=== PATIENT | male | born 1940 | race Caucasian/White ===

== ENCOUNTER → 2018-08-04 11:16 | Outpatient (CLI) | payer MEDICARE, SELFPAY ==
--- NOTE | 2018-08-04 11:21 | RAD_ITS ---
STUDY: X-RAY CHEST REASON FOR EXAM: Male, 78 years old. Upper anterior right chest pain. TECHNIQUE: 2 view chest study with PA and lateral projections. COMPARISON: 07/01/2005. FINDINGS: No tubes identified. Lungs appear well ventilated and clear of active focal poorly consolidation air bronchograms, pleural effusion, pneumothorax or abnormally dilated pulmonary vascularity. There is no demonstrated pleural abnormality. Normal size heart. Normal mediastinum and teresa. Normal visualized pulmonary arteries. Normal visualized aortic arch and descending thoracic aorta. Nonacute visualized thoracic spine with moderate to severe mid the ureter changes again noted. Normal visualized ribs, clavicles and right shoulder. 2 metal anchors screws project over the medial left humeral head indicating prior rotator cuff surgery repair. There is no demonstrated abnormality of the visualized soft tissue structures of the upper abdomen. No subdiaphragmatic free air seen grossly. RAD/Chest PA and Lateral IMPRESSION: Nonacute x-ray examination of the chest. Chronic changes as described above. Electronically Signed: Kevin Mcdowell, at 12:04 EDT Tel , Service support ,
[2018-08-04 13:04] LABS: Hematocrit 41.2 % (40-54); Hemoglobin 13.7 g/dl (13.0-16.5); Mean Corp Hgb Conc 33.3 g/gl (32-36); Mean Corpuscular Hgb 27.8 pg (27.0-32.0); Mean Corpuscular Volume 83.6 fL (80-94); Mean Platelet Vol. 10.1 fl (6.2-12.0); Platelet Count 206 K/mm3 (150-450); RBC Distribution Width CV 16.5 % (11.6-14.6); RBC Distribution Width SD 50.1 fl (35.1-43.9); Red Blood Count 4.93 M/mm3 (4.6-6.2); Scan Indicated on CBC? Y/N NO; White Blood Count 6.5 K/mm3 (4.4-11.0)
[2018-08-04 13:06] LABS: Erythrocyte Sedimentation Rate 20 mm/hr (0-20)
[2018-08-04 13:16] LABS: ALB/GLOB Ratio 0.9 RATIO (0.9-2.4); AST(SGOT) 25 U/L (15-37); Alanine Aminotransfer ALT/SGPT 38 U/L (16-61); Albumin, Serum 3.5 g/dL (3.2-5.0); Alkaline Phosphatase 90 U/L (45-117); Anion Gap 6 (5-15); BUN 18 mg/dL (7-18); BUN/Creat Ratio 18.6 RATIO (10-20); Calcium,Total 8.3 mg/dL (8.5-10.1); Chloride 104 mmol/L (98-107); Creatinine, Serum 0.97 mg/dL (0.70-1.30); EST Glomerular Filtration Rate 80 mL/min (>60); Est Glom Filt Rate - Afr Amer 96 mL/min (>60); Globulin 3.9 g/dL (2.2-4.2); Glucose 95 mg/dL (74-106); Potassium 4.3 mmol/L (3.5-5.1); Protein, Total 7.4 g/dL (6.4-8.2); Sodium Level 138 mmol/L (136-145)
== END ==
PROVIDERS: Family Provider Internal Medicine; PCP Internal Medicine; Referring Provider Internal Medicine; Visit Provider Internal Medicine
DX: R07.89 Other chest pain (principal)
CPT/HCPCS: 71046; 80053; 84484; 85027; 85379; 85652

== ENCOUNTER → 2018-08-04 14:03 | Outpatient (CLI) | payer MEDICARE, SELFPAY ==
--- NOTE | 2018-08-04 14:07 | CT_ITS ---
STUDY: CTA CHEST REASON FOR EXAM: Male, 78 years old. Elevated d-dimer right-sided chest pain and history of stents RADIATION DOSAGE (If Supplied By Facility): CTDIvol = ( 11.29 ) mGy, DLP = ( 606.04 ) mGycm TECHNIQUE: The examination was performed with the intravenous administration of 100 ml of Isovue 370 contrast material. Post-processing of the angiographic images was performed, with multiplanar reformation and 3D reconstruction. Individualized dose optimization techniques were used for this CT. COMPARISON: April 17, 2015 CT anterior chest FINDINGS: Normal enhancement of the main pulmonary artery and right and left pulmonary arteries. Normal enhancement of the bilateral peripheral pulmonary arteries. There is no demonstrated pulmonary embolism. Cord at the time of this study has minimal contrast enhancement. There is calcification of the descending thoracic aorta. There is mild cardiac enlargement. The visualized coronary calcifications. Normal mediastinum. Normal hilar regions. Normal visualized trachea and bronchi. There is a pattern of subtle groundglass opacity with areas of hyperlucency and mixed greater density lungs suggestive of air trapping chronic obstructive pulmonary disease. Normal pleura. There is a small focus of scarlike density within the left posterior spinous superficial soft tissues approximately at the level of T6. There are degenerative changes of thoracic spine. The stomach is distended. There are gallstones in the gallbladder. There is a small hiatal hernia. CT/CTA Chest W/WO Contrast IMPRESSION: No visualized pulmonary embolism. There is limited contrast enhancement of the aorta at the time of this study. No visualized aneurysmal dilatation. Subtle pattern of groundglass opacity suspicious for air trapping chronic obstructive pulmonary disease. Mild cardiomegaly coronary artery disease Minimal heterogeneity Cholelithiasis. Electronically Signed: Dee Dee Kent MD at 15:42 EDT Tel , Service support ,
== END ==
PROVIDERS: Family Provider Internal Medicine; PCP Internal Medicine; Referring Provider Internal Medicine; Visit Provider Internal Medicine
DX: R07.89 Other chest pain (principal)
CPT/HCPCS: 71046; 71275; 80053; 84484; 85027; 85379; 85652; Q9967

== ENCOUNTER → 2018-09-04 06:52 | Outpatient (CLI) | payer MEDICARE, SELFPAY ==
--- NOTE | 2018-09-04 06:55 | CDU_ITS ---
Reason For Study: Carotid stenosis Rt. Velocities/BP Lt. Velocities/BP Prox CCA 108.0/11.7 cm/sec. Prox CCA 93.2/17.0 cm/sec. Mid CCA 115.0/14.7 cm/sec. Mid CCA 108.0/21.1 cm/sec. Dist CCA 105.0/17.0 cm/sec. Dist CCA 93.8/23.5 cm/sec. Prox ICA 86.8/25.2 cm/sec. Prox ICA 64.4/17.5 cm/sec. Mid ICA 64.3/17.8 cm/sec. Mid ICA 80.9/22.9 cm/sec. Dist ICA 68.9/20.4 cm/sec. Dist ICA 80.3/25.8 cm/sec. Rt. ICA/CCA = .75. Lt. ICA/CCA = .75. Prox ECA 113.0/15.2 cm/sec. Prox ECA 98.5/16.4 cm/sec. Rt. Vert. 63.3/16.4 cm/sec. Lt. Vert. 51.6/16.4 cm/sec. Right Extracranial There is intimal thickening but no significant atherosclerotic plaque noted in the right common carotid artery. There is no significant atherosclerotic plaque noted in the right internal carotid artery. There is no significant atherosclerotic plaque noted in the right external carotid artery. Antegrade flow is noted in the right vertebral artery. There is heterogeneous, irregular atherosclerotic plaque noted in the right bulb. Left Extracranial There is intimal thickening but no significant atherosclerotic plaque noted in the left common carotid artery. There is intimal thickening but no significant atherosclerotic plaque noted in the left internal carotid artery. There is no significant atherosclerotic plaque noted in the left external carotid artery. Antegrade flow is noted in the left vertebral artery. Procedure Carotid Duplex [id number]. Exam performed in department. Interpretation Summary Mild (<50%) stenosis right extracranial internal carotid. Mild (<50%) stenosis left extracranial internal carotid. Flow within the vertebral arteries is antegrade bilaterally. Ordering Physician: Cindy Leslie Referring Physician: Cindy Leslie Performed By: Gabriela Rosen RVT
--- NOTE | 2018-09-04 14:36 | STRESSREP_ITS ---
Stress Test Report Exercise myocardial perfusion stress test. 78-year-old man with a history of chest pain. Medications metoprolol lisinopril doxazosin. Stress protocol: Resting EKG demonstrates sinus bradycardia with a rate of 56 bpm normal intervals and noted resting blood pressure 120/68 mmHg. The patient exercised according to regular Laurent protocol for a total duration of 7 minutes completing 1 minute into stage III of the Laurent protocol. The maximum heart rate attained was 148 bpm which was 104% of maximum predicted heart rate the maximum workload was 8.5 metabolic equivalents. At rest there were no ST or T wave changes noted suggest ischemia peak exercise upsloping ST changes were noted with no meet the criteria for ischemia. No clinical angina was noted the test was terminated due to leg fatigue. Myocardial perfusion protocol. 14.1 mCi of technetium 99m sestamibi was injected at rest. The patient exercised according to regular Laurent protocol for total duration of 7 minutes. At peak exercise 43.9 mCi of technetium 99m sestamibi was injected stress images were obtained stress and rest images were reconstructed and compared in the short axis vertical long and horizontal long axis. Gated images were also obtained per Perfusion SPECT analysis: Review of the stress images demonstrate normal uptake of tracer noted in all are as of the myocardium. The resting images similarly demonstrate normal uptake of tracer noted in all areas of the myocardium. No areas of reversibility are noted suggest ischemia. Gated SPECT analysis: The gated ejection fraction is noted to be 67%. Conclusion: Normal exercise myocardial perfusion stress test at a moderate workload. Good functional capacity. Preserved ejection fraction.
== END ==
PROVIDERS: Family Provider Internal Medicine; PCP Internal Medicine; Referring Provider Internal Medicine; Visit Provider Internal Medicine
DX: I65.23 Occlusion and stenosis of bilateral carotid arteries (principal); R07.89 Other chest pain
CPT/HCPCS: 78452; 93017; 93880; A9500; A4216

== ENCOUNTER 2019-10-20 22:50 | Emergency (ER) | payer MEDICARE, SELFPAY ==
[2019-10-20 22:52] VITALS: BP 147/72; PULSE 67; RESP 20; TEMP 36.3; O2SAT 98; BMI 28.1
--- NOTE | 2019-10-20 22:57 | EKG12_ITS ---
Test Reason : CP Blood Pressure : / mmHG Vent. Rate : 063 BPM Atrial Rate : 267 BPM P-R Int : 000 ms QRS Dur : 078 ms QT Int : 422 ms P-R-T Axes : 000 014 060 degrees QTc Int : 431 ms Normal sinus rhythm Abnormal ECG Confirmed by JUAN FRANCISCO PERALES, RICKIE ([id number]), book editor PEDRO PABLO CORREA ([id number]) on 10/23/2019 10:03:51 AM Referred By: DERIK Confirmed By:RICKIE CHICAS MD
--- NOTE | 2019-10-20 23:00 | RAD_ITS ---
HISTORY: CHEST PAIN STARTING A COUPLE HOURS AGO EXAMINATION/TECHNIQUE: XR Chest 1 View: Portable COMPARISON: 08/04/2018 FINDINGS: Cardiac telemetry leads in place. Shallow inspiration. No focal infiltrate. No vascular congestion or pleural effusion. No pneumothorax. Left shoulder surgical suture anchors. RAD/Chest 1 View (Portable) IMPRESSION: No acute cardiopulmonary disease. No significant interval change. at 0137 Reported and signed by: Micheal Quiros MD Electronically Signed: Micheal Quiros, at 1:36 EST Tel , Service support ,
[2019-10-20 23:04] VITALS: BP 162/66; PULSE 69; RESP 14
[2019-10-20 23:16] LABS: Absolute Lymphocyte Count 1.31 X10^3/uL (0.83-4.51); Absolute Neutrophil Count 6.2 X10^3/uL (2.0-7.7); Basophil# 0.02 X10^3/uL; Basophil% 0.2 % (0-1); Eosinophil# 0.18 X10^3/uL; Eosinophils% 2.2 % (0-5); Hematocrit 37.1 % (40-54); Lymphocyte # 1.31 X10^3/ul (4.0); Mean Corp Hgb Conc 32.3 g/dL (32-36); Mean Corpuscular Volume 86.7 fL (80-94); Mean Platelet Vol. 9.7 fl (6.2-12.0); Monocyte# 0.45 X10^3/uL; Monocyte% 5.5 % (0-10); NRBC Flagged by Analyzer 0 % (0-5); Neutrophil # 6.22 X10^3/uL (2.7-7.7); Neutrophil % 75.9 % (47-70); Platelet Count 172 K/mm3 (150-450); RBC Distribution Width CV 15.8 % (11.6-14.6); RBC Distribution Width SD 49.4 fl (35.1-43.9); Red Blood Count 4.28 M/mm3 (4.6-6.2); White Blood Count 8.2 K/mm3 (4.4-11.0)
[2019-10-20 23:41] LABS: Anion Gap 4 (5-15); BUN 25 mg/dL (7-18); BUN/Creat Ratio 21.2 RATIO (10-20); Calcium,Total 8.7 mg/dL (8.5-10.1); Chloride 106 mmol/L (98-107); Creatinine, Serum 1.18 mg/dL (0.70-1.30); EST Glomerular Filtration Rate 63 mL/min (>60); Est Glom Filt Rate - Afr Amer 77 mL/min (>60); Estimated Creatinine Clearance 49.11 ml/min; Glucose 166 mg/dL (74-106); Potassium 3.5 mmol/L (3.5-5.1); Sodium Level 143 mmol/L (136-145)
--- NOTE | 2019-10-20 23:47 | US_ITS ---
HISTORY: RUQ PAIN X 1 DAY EXAMINATION: US gallbladder and right upper quadrant abdomen TECHNIQUE: Garzon scale and color doppler imaging was performed of the gallbladder and right upper quadrant abdomen. COMPARISON: CTA chest 08/04/2018 FINDINGS: The gallbladder is adequately distended and shows multiple small dependent stones which shadow. Additional nonshadowing gallbladder sludge. No suspicious gallbladder wall thickening or pericholecystic edema. By history, positive sonographic Watts's sign. The common bile duct measures 0.3 cm in diameter which is normal. The liver appears enlarged measuring nearly 20 cm in length. No focal hepatic lesion identified. No free fluid. The pancreas is poor visualized secondary to acoustical shadowing from overlying bowel. The right kidney is visualized and appears normal measuring 11 cm in length and without hydronephrosis. US/Abdomen Limited IMPRESSION: 1. Cholelithiasis. No biliary dilatation. 2. Hepatomegaly. No free fluid. Comment: By history, positive sonographic Watts's sign. Please correlate clinically. at 0306 Reported and signed by: Micheal Quiros MD Electronically Signed: Micheal Quiros, at 3:04 EST Tel , Service support ,
--- NOTE | 2019-10-20 23:49 | ED.VIS.GEN ---
History of Present Illness Chief Complaint: Chest Pain Narrative: This patient is a 79-year-old male who presents with epigastric pain. This began about 3 hours ago. He had eaten a small piece of ham but not much else since about noon. No history of prior similar symptoms. He describes it as pressure-like. It is nonradiating. It is severe. He states he feels a little short of breath. No fever cough congestion rhinorrhea. No dizziness. No nausea. No vomiting or diarrhea. No abdominal surgeries. He does have a history of hypertension and coronary disease. No abdominal surgeries. Past Medical History - Allergies and Home Meds Allergies/Adverse Reactions: Allergies No Known Allergies Allergy (Verified 10/20/19 22:52) Primary Care Physician: Cindy Leslie MD [Primary Care Provider] - Prior records reviewed: Yes Past Medical History: - - Hypertension, coronary artery disease Smoking Status: Never smoker Review of Systems All systems negative except as indicated General: Denies: Fever Cardiovascular: Denies: Chest pain Respiratory: Reports: Dyspnea. Denies: Cough Gastrointestinal: Reports: Abdominal pain. Denies: Nausea, Vomiting, Diarrhea Musculoskeletal: Denies: Myalgias, Arthralgias Skin: Denies: Rash Neurological: Denies: Headache Physical Exam Vital Signs/Narrative: Vital Signs Temp Pulse Resp BP Pulse Ox 10/20/19 23:04 69 14 162/66 H 10/20/19 22:52 97.3 F L 67 20 H 147/72 H 98 Inital Vital Signs reviewed: Yes General: Well nourished, Well developed Head: Normocephalic Eyes: EOMI ENT: Moist mucous membranes Neck: Supple Cardiovascular: Regular rate, Regular rhythm Respiratory: No distress, CTA bilaterally Abdomen: Soft, - - Epigastric and right upper quadrant pain without guarding without rebound, no Watts's sign Extremities: Nontender Skin: Diaphoresis Neurological: Alert Psychological: Normal affect Diagnostic/Tx/Re-eval Impressions Chest X-Ray 10/20/19 23:00 IMPRESSION: No acute cardiopulmonary disease. No significant interval change. at 0137 Reported and signed by: Micheal Quiros MD Electronically Signed: Micheal Quiros, at 1:36 EST Tel , Service support , Abdomen Ultrasound 10/20/19 23:47 IMPRESSION: 1. Cholelithiasis. No biliary dilatation. 2. Hepatomegaly. No free fluid. Comment: By history, positive sonographic Watts's sign. Please correlate clinically. at 0306 Reported and signed by: Micheal Quiros MD Electronically Signed: Micheal Quiros, at 3:04 EST Tel , Service support , 10/20/19 23:00 Chest 1 View (Portable) [RAD] Stat 10/20/19 23:47 Abdomen Limited [US] Stat Laboratory Results 10/20/19 10/20/19 10/20/19 23:03 23:03 23:03 WBC 8.2 RBC 4.28 L Hgb 12.0 L Hct 37.1 L MCV 86.7 MCH 28.0 MCHC 32.3 RDW Std Deviation 49.4 H RDW Coeff of Bailey 15.8 H Plt Count 172 MPV 9.7 Immature Gran % (Auto) 0.200 Neut % (Auto) 75.9 H Lymph % (Auto) 16.0 L Hernando % (Auto) 5.5 Eos % (Auto) 2.2 Baso % (Auto) 0.2 Absolute Neuts (auto) 6.2 Absolute Lymphs (auto) 1.31 Nucleated RBC % 0 Sodium 143 Potassium 3.5 Chloride 106 Carbon Dioxide 33.0 H Anion Gap 4 L BUN 25 H Creatinine 1.18 Estim Creat Clear Calc 49.11 Est GFR (MDRD) Af Amer 77 Est GFR (MDRD) Non-Af 63 BUN/Creatinine Ratio 21.2 H Glucose 166 H Calcium 8.7 Total Bilirubin 0.50 Direct Bilirubin 0.18 AST 20 ALT 28 Alkaline Phosphatase 83 Troponin I < 0.015 Total Protein 7.6 Albumin 3.7 Globulin 3.9 Lipase 169 - Medical Decision Making Patient's initial presentation was most concerning for biliary colic or cholecystitis. EKG was obtained which shows a regular narrow complex rhythm at a rate of 63. Chest x-ray unremarkable. Laboratory studies including CMP and lipase unremarkable. Right upper quadrant ultrasound shows cholelithiasis without any pericholecystic fluid or wall thickening. There was however positive sonographic Watts sign. Patient was given morphine and Zofran with only minimal improvement of symptoms. He was given Toradol with relief but not complete resolution of his pain. On reevaluation he is resting comfortably but still rates his pain is 2-1/2 out of 10. I did speak to general surgery on-call. We do not feel the patient has an indication for emergent surgery and do feel he can follow-up as an outpatient. On my reevaluation to discuss this plan patient is actually currently now pain-free. Therefore I do feel he is appropriate for outpatient discharge with follow-up with surgery. He was advised on supportive care and diet. I did write a prescription for Cambridge. He was advised on signs and symptoms which should prompt return here to the emergency department for reevaluation such as fevers or vomiting. Patient agreeable to this plan was discharged home. ED Disposition - Plan for ED Patient: Disposition: Home or Assisted Living Diagnosis: Biliary colic Instructions: BILIARY COLIC with Gallstone (Confirmed) Prescriptions: Hydrocodone Bitart/Apap 5-325 [Cambridge 5MG-325MG] 1 tab PO Q6H PRN PRN 3 Days #10 tab PRN Reason: Pain Prescription Printed Referrals: Cindy Leslie MD [Primary Care Provider] - William Myles MD [STAFF PHYSICIAN] -
[2019-10-20] MEDS: 0.9% Normal Saline 1,000 ML 1000 ML IV (23:57)
[2019-10-20] MEDS: Ondansetron 4 MG/2 ML Vial IV (23:57)
[2019-10-20] MEDS: Morphine 4 MG/ML Syringe IV (23:57)
[2019-10-21 00:08] VITALS: BP 157/62; PULSE 52; RESP 15; O2SAT 99
[2019-10-21 00:24] LABS: AST(SGOT) 20 U/L (15-37); Alanine Aminotransfer ALT/SGPT 28 U/L (16-61); Albumin, Serum 3.7 g/dL (3.2-5.0); Alkaline Phosphatase 83 U/L (45-117); Bilirubin, Direct 0.18 mg/dL (0.00-0.30); Globulin 3.9 g/dL (2.2-4.2); Lipase 169 U/L (73-393); Protein, Total 7.6 g/dL (6.4-8.2)
[2019-10-21 02:58] VITALS: BP 130/71; PULSE 56; RESP 16; O2SAT 94
[2019-10-21 03:07] VITALS: BP 125/56; PULSE 51; RESP 16; O2SAT 96
[2019-10-21] MEDS: Ketorolac 15 MG/ML Vial IV (03:35)
[2019-10-21 04:15] VITALS: BP 123/53; PULSE 58; RESP 15; O2SAT 96
[2019-10-21 04:17] VITALS: BP 123/53; PULSE 58; RESP 15; O2SAT 96
== END 2019-10-21 04:27 | disposition home or self-care (01) ==
PROVIDERS: Emergency Provider Emergency Medicine; Family Provider Internal Medicine; PCP Internal Medicine
DX: K80.70 Calculus of gallbladder and bile duct without cholecystitis without obstruction (principal); I25.10 Atherosclerotic heart disease of native coronary artery without angina pectoris; I10 Essential (primary) hypertension; Z79.82 Long term (current) use of aspirin; Z79.899 Other long term (current) drug therapy
CPT/HCPCS: 71045; 76705; 80048; 80076; 83690; 84484; 85025; 93005; 96361; 96374; 96375; 99284; J7030; A4216; J2405

== ENCOUNTER 2019-10-23 15:13 | Observation (INO) | payer MEDICARE, SELFPAY ==
[2019-10-22 10:10] VITALS: BMI 28.1
--- NOTE | 2019-10-22 10:26 | HP.PCM_ITS ---
Problem List (1) Cholelithiasis Status: Acute Qualifiers: Cholelithiasis location: gallbladder Cholecystitis presence: without cholecystitis Biliary obstruction: without biliary obstruction Qualified Code(s): K80.20 - Calculus of gallbladder without cholecystitis without obstruction History and Physical Date of Admission: 10/22/19 Intake Vital Signs 10/22/19 BMI 28.1 10/22/19 Height 5 ft 8 in 10/22/19 Weight: 185 lb 7 oz 10/22/19 BMI 28.2 10/22/19 BP 123/67 H 10/22/19 Blood Pressure Location Rt brachial 10/22/19 Position Sitting 10/22/19 Respiration 20 H 10/22/19 Pulse 79 10/22/19 Pulse Oximetry (%) 93 Intake Visit Reasons: Gallbladder problems Chief Complaint: abn RUQ US Flash Ranging 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 Required: No Is patient in pain?: No Allergies No Known Allergies Allergy (Verified 10/22/19 10:08) Medications Aspirin [Aspirin, Baby] 81 mg PO DAILY@0800 04/17/15 [History Confirmed 10/22/19] Hydrocodone Bitart/Apap 5-325 [Descanso 5MG-325MG] 1 tab PO Q6H PRN PRN 3 Days #10 tab 10/21/19 [Rx Confirmed 10/22/19] atorvastatin 80 mg tablet PO 10/22/19 [History Confirmed 10/22/19] doxazosin 4 mg tablet mg PO 10/22/19 [History Confirmed 10/22/19] lisinopril 2.5 mg tablet PO 10/22/19 [History Confirmed 10/22/19] metoprolol tartrate 25 mg tablet PO 10/22/19 [History Confirmed 10/22/19] PFSH Medical History (Updated 10/22/19 @ 10:06 by Yenifer Irsael) BPH (benign prostatic hyperplasia) (Acute) CAD (coronary artery disease) (Acute) Carotid stenosis, bilateral (Acute) Erectile dysfunction (Acute) History of colon polyps (Acute) History of melanoma (Acute) Hypercholesteremia (Acute) HTN (hypertension) (Chronic) Surgical History (Updated 10/22/19 @ 10:06 by Yenifer Israel) H/O heart artery stent (Acute) History of back surgery (Acute) History of colonoscopy (Acute) History of rotator cuff surgery (Acute) Family History (Updated 10/22/19 @ 10:07 by Yenifer Israel) Son Cancer esophageal and neuroendocrine Brother Heart disease Father AAA (abdominal aortic aneurysm) Social History (Updated 10/22/19 @ 10:25 by William Myles MD) Smoking Status: Never smoker HPI HPI HPI: ROB SPEARS, is a 79 M who presents to the office today for HPI HPI HPI: ROB SPEARS, is a 79 M who presents to the office today for gallstones and right upper quadrant pain. The patient was in the emergency room this weekend with right upper quadrant pain. This is the first time he had ever experienced right upper quadrant pain like this. He did not have any nausea or vomiting. He also reports that the pain has resolved at this time. He is only having a minimal amount right upper quadrant pain at this time. He denies any fevers or chills. Current symptoms: Denies constipation Associated symptoms: Denies constipation or diarrhea ROS General General: No weight change, appetite, fatigue, colon cancer, breast cancer or weakness HEENT HEENT: No difficulty swallowing, eye injury, eye surgery, swollen glands or hoarseness Endo Endocrine: No thyroid disease, diabetes mellitus, thyroid cancer, Hair loss, heat intolerance or cold intolerance Musc Musculoskeletal: Yes back problems and arthritis; no rheumatoid arthritis, gout or joint pain Cardio Cardiovascular: Yes heart disease, high blood pressure and heart stent; no murmur, pacemaker, atrial fibrillation, heart attack, palpitations, shortness of breat with exertion or chest pain Resp Respiratory: No shortness of breath, No sleep apnea, No cough, No COPD, No asthma, No emphysema, No wheezing Gastro Gastrointestinal: Yes abdominal pain, No nausea or vomiting, No diarrhea, No constipation, No blood in stool, No acid reflux, No hemorrhoids, No ulcers, Yes gallbladder problem, No black,tarry stools Shai Hematologic: No blood thinners, No blood disorders, No bleeding, No anemia, No blood clots Neuro Neurologic: No weakness Exam Const General: cooperative Orientation: alert, oriented x3 HENMT Head: normal to inspection Eyes General: appearance normal, both eyes and all related structures Visual Salvador: normal visual salvador by confrontation Neck Neck: normal visual inspection Chest Chest palpation & inspection: normal inspection of the chest Resp Effort & Inspection: normal respiratory effort Auscultation: clear to auscultation bilaterally Cardio Rate: regular rate Rhythm: regular rhythm Heart Sounds: no murmurs GI Inspection: non-distended Palpation: soft, nontender Musc Cervical Spine: normal cervical lordosis, cervical ROM normal Skin General: no rashes or lesions noted Neuro General: alert, oriented x3 Cranial Nerves: CN's II-XI intact bilaterally Cognition: normal cognition Extrem General: normal to inspection, full ROM Psych Appearance: grossly normal Affect: normal affect Assessment & Plan 1. Gallbladder Problem K82.9 2. Calculus of gallbladder without cholecystitis without obstruction K80.20 Plan The patient was recently emergency room with right upper quadrant pain. He had a normal white count and the pain resolved in the emergency room. The patient had an ultrasound which showed normal gallbladder wall thickness and no pericholecystic fluid but he did have multiple shadowing gallstones. I did recommend laparoscopic cholecystectomy for the patient and he would like to proceed. I discussed the procedure in detail with the patient. I discussed the risks, benefits, and alternatives of the procedure. I discussed the risks including but not limited to bleeding, infection, injury to surrounding organs such as the liver, bile duct, bowels. I did discuss the possibility of having to convert to an open procedure as well as the possibility that if any injuries occurred this may necessitate further surgery at a tertiary care center. William Myles MD Pager: [facility] [address] [place] [address] [address] [place] [address] Office:
[2019-10-23] VITALS (9 sets, daily range): BP systolic 124–154; BP diastolic 52–91; PULSE 56–80; RESP 16–18; TEMP 36.4–36.9; O2SAT 94–99; BMI 29.4
[2019-10-23] MEDS: Lactated Ringers 1,000 ML 100 ML IV ×2 (12:19→15:01)
--- NOTE | 2019-10-23 13:10 | RAD_ITS ---
CLINICAL HISTORY: Male, 79 years old. Acute cholecystitis. PROCEDURE: CHOLANGIOGRAM - intraoperative TECHNIQUE: 2 series of images collectively numbering 125 are presented for interpretation. COMPARISON: Abdominal ultrasound, October 21, 2019. FINDINGS: The study demonstrates patient to be status post cholecystectomy. There is cannulization of the cystic duct stump with injection of contrast into the biliary ductal system. There is no evidence of filling defect. There is a questionable structure at the junction of the main left lobe bile duct with the right with mild dilatation of the major duct. The remainder of the bile ducts are without stricture or dilatation. There is free spillage of contrast into the duodenum. Please refer to the operative report for further details. RAD/Cholangiogram/ O R,Initial IMPRESSION: Interoperative cholangiogram. Electronically Signed: Maxime Sharma DO at 17:40 EST Tel [phone], Service support ,
--- NOTE | 2019-10-23 13:10 | GALL_PTH ---
PATIENT: ROB SPEARS LOC: MS3 U#:[id number] AGE/SX: 79/M ROOM: MS301 RE10/23/[address]: Dr. William Myles MD : 1940 BED: 1 DIS: 10/24/2019 SPEC #: [id number] RECD: 10/24/19 00:00 STATUS: KASSI BERGER #: [id number] JOSSY: 10/23/19 13:[address]: William Myles DEPT: SURGICAL PATHOLOGY RECD BY: Sameer Castillo ENTERED: 10/25/19 11:15 SP TYPE: MARITA BENNETT DR: Dr. Cindy Leslie MD Tissues: Gallbladder, NOS Procedures: Surgery Specimen Level III HEADER OPERATION: Laparoscopic cholecystectomy with IOC PRE-OP DIAGNOSIS: Calculus of gallbladder TISSUE SUBMITTED: Gallbladder MICROSCOPIC DIAGNOSIS Gallbladder, cholecystectomy: Acute and chronic hemorrhagic and ulcerated cholecystitis and cholelithiasis. Reactive epithelial changes. SJ:rg 1/3/20 MICROSCOPIC DESCRIPTION Slides are reviewed. GROSS DESCRIPTION Received is one container labeled with the patient's name and designated gallbladder. The specimen consists of a gallbladder measuring 9 cm in length and 4 cm in diameter. The serosal surface is congested. The external surface is pink-severino, smooth and glistening for the most part. Focally it is granular, hemorrhagic and contains cautery artifact. The gallbladder contains hemorrhagic bile mixed with sludge material and multiple small stones measuring 0.1 to 0.3 cm in greatest dimension. The sludge material and stones including hemorrhagic bile measures in aggregate 4 x 4 x 0.5 cm. The mucosa is ulcerated and congested. The gallbladder wall measures up to 0.5 cm in thickness. Sample Grinder sections from the gallbladder and the cystic duct are submitted in one cassette. / SJ:[place] 10/25/19 TC:2 CPT: 67741
[2019-10-23] MEDS: Bupiv/Epi 0.25% 30 ML Vial (14:30)
--- NOTE | 2019-10-23 15:16 | OP.PCM_ITS ---
Problem List (1) Cholelithiasis Status: Acute Qualifiers: Cholelithiasis location: gallbladder Cholecystitis presence: with cholecystitis Cholecystitis acuity: acute Biliary obstruction: without biliary obstruction Qualified Code(s): K80.00 - Calculus of gallbladder with acute cholecystitis without obstruction Report of Operation Date of Procedure: 10/23/19 Pre-Operative Diagnosis: Cholelithiasis Post-Operative Diagnosis: Acute cholecystitis Surgery/Procedure Performed:: Laparoscopic cholecystectomy with cholangiogram Description of Surgical Findings:: Very inflamed gallbladder with thickened tissue and inflammation. Wound class contaminated Specimen's removed: Gallbladder and contents Description of Procedure: After obtaining informed consent patient was brought back to the operating room. General anesthesia was induced. The abdomen was prepped and draped in usual sterile fashion. A small midline incision was made superior to the umbilicus and deepened to the level of fascia. The fascia was elevated and incised. Next the peritoneum was elevated and incised in the same fashion. Finger sweep was performed and the Rocha trocar was placed into the abdomen. The balloon was inflated. The abdomen was inflated to 15 mmHg. Next a camera was introduced into the abdomen and the abdomen was inspected. Next under direct visualization three 5-mm ports were placed one subxiphoid and 2 subcostal. Next the gallbladder was elevated and retracted toward the right shoulder. The gallbladder was aspirated. The gallbladder was extremely inflamed and thick- walled. The patient had severe acute cholecystitis. The peritoneum was stripped from the gallbladder. The infundibulum was located and retracted laterally. Next the triangle of Calot was dissected and the cystic duct and cystic artery were identified. Cholangiograms were performed. The Venegas clamp was used to clamp across the infundibulum and the catheter needle was inserted into the gallbladder. Under fluoroscopy contrast was instilled into the gallbladder and the common duct, cystic duct as well as proximal hepatic ducts were identified. There was good filling of the duodenum. There were no filling defects noted in the common bile duct. The clamp was removed as well as the needle and the infundibulum was grasped once more. Three hemolock clips were placed across the cystic duct. The cystic duct was then divided leaving 2 clips on the stump. The cystic artery was clipped and divided in the same fashion. The hook cautery was then used to take the gallbladder off of the gallbladder bed. Hemostasis was obtained. Gallbladder fossa was irrigated and no active bleeding or bile leakage was noted. Next the camera switched to a 5 mm camera and introduced in the subxiphoid port. An Endopouch bag was placed through the umbilical port and the gallbladder was placed into it. The gallbladder was then removed through the umbilical incision. The camera was then reinserted through the umbilical port. The gallbladder fossa was inspected once more and noted to be hemostatic with no leaking bile. Surgicel powder was sprayed in the gallbladder fossa. The abdomen was suctioned dry. The 5 mm ports were removed under direct visualization. The umbilical port was then removed and the air was removed from the abdomen. Next using an 0 Vicryl suture the umbilical fascia was closed in a [id number] fashion. The umbilical port site was irrigated local anesthetic was administered to all the incisions. All the incisions were closed with interrupted subcuticular 4-0 Monocryl sutures followed by Steri- Strips and dressings. The patient was awoken and taken to PACU in stable condition. - Admit VTE Documentation VTE Mechan Device Prophylaxis: SCD's
[2019-10-23] MEDS: 0.9% Normal Saline 1,000 ML 100 ML IV (16:42)
[2019-10-23] MEDS: Metoprolol Tartrate 25 MG Tablet PO (21:43)
[2019-10-23] MEDS: Atorvastatin Calcium 80 MG Tablet PO (21:44)
[2019-10-24] MEDS: 0.9% Normal Saline 1,000 ML 100 ML IV (02:12)
[2019-10-24] MEDS: 0.9% Saline Lock 10 ML Syringe IV (02:15)
[2019-10-24 02:39] VITALS: BP 121/56; PULSE 53; RESP 18; TEMP 36.4; O2SAT 96
[2019-10-24 06:05] LABS: Absolute Lymphocyte Count 0.65 X10^3/uL (0.83-4.51); Absolute Neutrophil Count 8.5 X10^3/uL (2.0-7.7); Basophil# 0.01 X10^3/uL; Basophil% 0.1 % (0-1); Hematocrit 32.7 % (40-54); Hemoglobin 10.7 g/dL (13.0-16.5); Lymphocyte # 0.65 X10^3/ul (4.0); Lymphocyte % 6.7 % (19-41); Mean Corp Hgb Conc 32.7 g/dL (32-36); Mean Corpuscular Hgb 27.9 pg (27.0-32.0); Mean Corpuscular Volume 85.4 fL (80-94); Mean Platelet Vol. 10.4 fl (6.2-12.0); Monocyte# 0.51 X10^3/uL; Monocyte% 5.3 % (0-10); NRBC Flagged by Analyzer 0 % (0-5); Neutrophil # 8.52 X10^3/uL (2.7-7.7); Neutrophil % 87.7 % (47-70); Platelet Count 163 K/mm3 (150-450); RBC Distribution Width CV 15.3 % (11.6-14.6); RBC Distribution Width SD 47.1 fl (35.1-43.9); Red Blood Count 3.83 M/mm3 (4.6-6.2); White Blood Count 9.7 K/mm3 (4.4-11.0)
[2019-10-24 06:30] LABS: ALB/GLOB Ratio 0.7 RATIO (0.9-2.4); AST(SGOT) 14 U/L (15-37); Alanine Aminotransfer ALT/SGPT 23 U/L (16-61); Albumin, Serum 2.7 g/dL (3.2-5.0); Alkaline Phosphatase 60 U/L (45-117); Anion Gap 5 (5-15); BUN 16 mg/dL (7-18); BUN/Creat Ratio 13.3 RATIO (10-20); Calcium,Total 8.4 mg/dL (8.5-10.1); Chloride 108 mmol/L (98-107); EST Glomerular Filtration Rate 62 mL/min (>60); Est Glom Filt Rate - Afr Amer 75 mL/min (>60); Estimated Creatinine Clearance 48.29 ml/min; Globulin 3.8 g/dL (2.2-4.2); Glucose 148 mg/dL (74-106); Potassium 4.2 mmol/L (3.5-5.1); Protein, Total 6.5 g/dL (6.4-8.2); Sodium Level 142 mmol/L (136-145)
[2019-10-24 08:20] VITALS: BP 119/58; PULSE 77; RESP 18; TEMP 36.6; O2SAT 93
--- NOTE | 2019-10-24 08:22 | PCM.PN.SRG ---
Subjective: Patient is doing well and tolerating a diet with minimal pain. - Physical Exam Vitals/I&O's: Vital Signs Temp Pulse Resp BP Pulse Ox 97.6 F L 53 L 18 121/56 H 96 10/24/19 02:39 10/24/19 02:39 10/24/19 02:39 10/24/19 02:39 10/24/19 02:39 Oxygen Flow Rate (L/min) 2 Oxygen Delivery Method Nasal Cannula Weight: 193 lb 6.4 oz Body Mass Index (BMI) 29.4 Intake and Output for Last 24 Hours 10/22/19 10/23/19 10/24/19 23:59 23:59 23:59 Intake Total 1628.33 / 1628.33 1655 / 1655 Output Total 100 / 100 1375 / 1375 Balance 1528.33 / 1528.33 280 / 280 General: Alert, Oriented x3 Lungs: Normal air movement Abdomen: Soft, Non Tender, Non-Distended Laboratory Results 10/24/19 05:00: WBC 9.7, RBC 3.83 L, Hgb 10.7 L, Hct 32.7 L, MCV 85.4, MCH 27.9, MCHC 32.7, RDW Std Deviation 47.1 H, RDW Coeff of Bailey 15.3 H, Plt Count 163, MPV 10.4, Immature Gran % (Auto) 0.200, Neut % (Auto) 87.7 H, Lymph % (Auto) 6.7 L, [place] % (Auto) 5.3, Eos % (Auto) 0.0, Baso % (Auto) 0.1, Absolute Neuts (auto) 8.5 H, Absolute Lymphs (auto) 0.65 L, Nucleated RBC % 0 10/24/19 05:00: Sodium 142, Potassium 4.2, Chloride 108 H, Carbon Dioxide 29.0, Anion Gap 5, BUN 16, Creatinine 1.20, Estim Creat Clear Calc 48.29, Est GFR (MDRD) Af Amer 75, Est GFR (MDRD) Non-Af 62, BUN/Creatinine Ratio 13.3, Glucose 148 H, Calcium 8.4 L, Total Bilirubin 0.40, AST 14 L, ALT 23, Alkaline Phosphatase 60, Total Protein 6.5, Albumin 2.7 L, Globulin 3.8, Albumin/Globulin Ratio 0.7 L Current Medications Acetaminophen (Tylenol) 650 mg PO Q6H PRN PRN PRN Reason: Pain Score 1-10/10 Aspirin (Aspirin, Baby) 81 mg PO DAILY@0800 [facility] Atorvastatin Calcium (Lipitor) 80 mg PO QHS [facility] Last Admin: 10/23/19 21:44 Dose: 80 mg Documented by: Doxazosin Mesylate (Cardura) 4 mg PO DAILY [facility] Cefotetan Disodium 2 gm/ (Dextrose) 100 mls @ 200 mls/hr IV Q12H [facility] Last Infusion: 10/24/19 03:24 Dose: Infused Documented by: Sodium Chloride () 1,000 mls @ 100 mls/hr IV .Q10H [facility] Last Infusion: 10/24/19 03:24 Dose: 100 mls/hr Documented by: Sodium Chloride () 250 mls @ 15 mls/hr IV .[id number] PRN PRN Reason: Saline Flush Sodium Chloride () 250 mls @ 15 mls/hr IV .[id number] PRN PRN Reason: Additional IVPB Infusion Lisinopril (Zestril) 2.5 mg PO DAILY [facility] Metoprolol Tartrate (Lopressor (Beta Annika)) 25 mg PO BID [facility] Last Admin: 10/23/19 21:43 Dose: 25 mg Documented by: Morphine Sulfate () 2 - 4 mg IV Q2H PRN PRN PRN Reason: Pain Score 6-10/10 Ondansetron HCl (Zofran) 4 mg IV Q6H PRN PRN PRN Reason: NAUSEA/VOMITING Oxycodone HCl (Oxyir) 5 - 10 mg PO Q4H PRN PRN PRN Reason: Pain Score 6-10/10 Sodium Chloride () 10 - 40 ml IV UD PRN PRN Reason: SALINE FLUSH Last Admin: 10/24/19 02:15 Dose: 10 ml Documented by: Medical Necessity - Tobacco Use Smoking Status: Never smoker Tobacco Use: Non-smoker Assessment/Plan All Active Problems (Last Updated 10/22/19 @ 10:06 by Yenifer Israel) Cholelithiasis (Acute) 79-year-old male status post laparoscopic cholecystectomy Patient is doing well and tolerating a diet. NM home. Follow-up with me in 1 week. William Myles MD Pager: [facility] [address] [place] [address], [address] [place] [address] Office:
--- NOTE | 2019-10-24 08:23 | PCM.DC.GB ---
Discharge Diet: Light diet - advance as tolerated Discharge Activity: Return to Normal Activity, May Not Drive - for 2-3 days or while taking narcotic pain medicataions., - - Do not drive, work heavy equipment or sign legal documents for 24 hours. May shower in (days): 1 - with the bandage in place. Lifting Restrictions: 20 lbs for 2 weeks Additional Activity Instructions:: Pain medication may cause nausea. You should typically eat light foods as you take your pain medications. Pain medication may also cause constipation. If this is a problem for you, please discuss with your doctor. Call your doctor if your incision/area has: Continuous Slow Oozing, Sudden Increased Bleeding, Increased Pain/ Swelling, Increased Redness, Foul Smelling Discharge, Fever of 101 or Higher Call your doctor if you observe: Fever of 101 or Higher Suture Line Care: Avoid Pulling/Pushing, Avoid Pinching/Bending Additional Dressing/Incision Instructions:: Leave operative bandaids on for 2 days. When you remove dressing, leave Steri-Strips on until your follow-up appointment, or until the Steri-Strips fall off on their own. Allergies/Adverse Reactions: Allergies No Known Allergies Allergy (Verified 10/23/19 11:42) Medications to take at Discharge Aspirin [Aspirin, Baby] 81 mg PO DAILY@0800 04/17/15 Hydrocodone Bitart/Apap 5-325 [[place] 5/325] 1 tab PO Q6H PRN PRN 3 Days #10 tab 10/21/19 atorvastatin 80 mg tablet 80 mg PO QHS 10/22/19 doxazosin 4 mg tablet 4 mg PO DAILY 10/22/19 lisinopril 2.5 mg tablet 2.5 mg PO DAILY 10/22/19 metoprolol tartrate 25 mg tablet 25 mg PO BID 10/22/19 Acetaminophen [Tylenol Tablet] 650 mg PO Q6H PRN PRN tablet 10/24/19 Primary Care Physician: Cindy Leslie MD [Primary Care Provider] - Test Results: Test results from this visit will be discussed in further detail at your follow-up appointment, if applicable. Please Follow Up With: William Myles MD When: Please call to schedule 1 week follow up appointment. [phone]
== END 2019-10-24 10:04 | disposition home or self-care (01) ==
LOC: SDC 15:24 → MS3 15:24
PROVIDERS: Admitting Provider Surgery; Family Provider Internal Medicine; PCP Internal Medicine; Referring Provider Surgery; Visit Provider Surgery
PROC: (CPT 47610; principal; 2019-10-23 12:50)
DX: K80.12 Calculus of gallbladder with acute and chronic cholecystitis without obstruction (principal); N40.0 Benign prostatic hyperplasia without lower urinary tract symptoms; I25.10 Atherosclerotic heart disease of native coronary artery without angina pectoris; E78.00 Pure hypercholesterolemia, unspecified; I10 Essential (primary) hypertension; Z79.82 Long term (current) use of aspirin; Z79.899 Other long term (current) drug therapy; Z85.820 Personal history of malignant melanoma of skin
CPT/HCPCS: 47563; 36415; 74300; 76000; 80053; 85025; 88304; 96361; 96365; 99218; J7030; J7120; A4216; G0378; G0379; J2405

== ENCOUNTER → 2020-08-28 07:00 | Outpatient (CLI) | payer MEDICARE, SELFPAY ==
[2020-04-07 08:29] VITALS: BMI 29.4
--- NOTE | 2020-08-28 12:27 | STRESSREP ---
Stress Test Report Date: 08/28/2020 Procedure: Exercise tolerance test/imaging study Indications: CAD Consent: Per the patient Procedure: The patient exercised on a Laurent protocol for 6 minutes achieving a peak heart rate of 133 bpm (95% predicted maximal heart rate) with a peak blood pressure 148/62 mmHg and a peak MET capacity of 7 METs. The baseline ECG demonstrated sinus rhythm, occasional PACs. The peak exercise ECG demonstrated no significant ischemic ST-T changes. EKG during recovery revealed no significant ischemic ST-T changes [There were no significant cardiac dysrhythmias pretest, during exercise, or recovery]. The functional capacity was considered normal for age. There was [no complaint of chest discomfort during exercise or recovery]. The examination was discontinued secondary to achieving target heart rate. Impression: 1. Technically adequate (percent predicted maximal heart rate greater than 85%) exercise tolerance test 2. Stress test is negative for exercise-induced EKG changes of ischemia 3. The test test is negative for exercise-induced chest pain 4. Functional capacity is normal for age 5. Nuclear images pending Myocardial perfusion imaging study: Technique: The patient was injected with 11.7 mCi of technetium 99m Cardiolite and subsequently rest SPECT Cardiolite nuclear imaging was obtained in the horizontal long, vertical long, and short axis views. The patient exercised on a Laurent protocol. Please see above for details. The patient was injected with 33.9 mCi of technetium 99m Cardiolite and subsequently stress SPECT Cardiolite nuclear imaging was obtained in the horizontal long, vertical long, and short axis views. A gated Cardiolite study at peak stress was obtained. Interpretation: Rest and stress SPECT Cardiolite nuclear imaging status post realignment, normalization, and attenuation correction, demonstrates overall normal myocardial radioisotope uptake. The gated Cardiolite study demonstrates no significant regional wall motion abnormalities. The reported LVEF is greater than 70%. Impression: 1. There is no evidence of significant ischemia or infarction. 2. The gated Cardiolite study reports an LVEF of greater than 70%. This note was generated with [employer] software. It may contain incorrect words, spelling, and punctuation that were not noted in checking the note before signing.
== END ==
PROVIDERS: PCP Internal Medicine; Referring Provider Internal Medicine; Visit Provider Internal Medicine
DX: I25.119 Atherosclerotic heart disease of native coronary artery with unspecified angina pectoris (principal)
CPT/HCPCS: 78452; 93017; A9500; A4216

== ENCOUNTER 2020-12-10 16:10 | Outpatient (RCR) | payer MEDICARE, SELFPAY ==
[2020-04-07 08:29] VITALS: BMI 29.4
== END 2020-12-10 23:59 ==
LOC: IMMUN 16:10
PROVIDERS: PCP Internal Medicine; Referring Provider Family Medicine; Visit Provider Family Medicine
DX: Z23 Encounter for immunization (principal)
CPT/HCPCS: 0011A; 0012A; 91301

== ENCOUNTER → 2021-02-11 12:56 | Outpatient (CLI) | payer MEDICARE, SELFPAY ==
[2020-04-07 08:29] VITALS: BMI 29.4
--- NOTE | 2021-02-11 12:58 | CDU_ITS ---
Reason For Study: Carotid stenosis Rt. Velocities/BP Lt. Velocities/BP Prox CCA 99.5/13.4 cm/sec. Prox CCA 83.3/13.9 cm/sec. Mid CCA 90.4/12.1 cm/sec. Mid CCA 92.4/15.7 cm/sec. Dist CCA 82.9/9.9 cm/sec. Dist CCA 81.5/13.9 cm/sec. Prox ICA 59.5/15.1 cm/sec. Prox ICA 85.1/13.9 cm/sec. Mid ICA 60.8/17.7 cm/sec. Mid ICA 70.5/17.5 cm/sec. Dist ICA 54.3/9.9 cm/sec. Dist ICA 59.7/13 cm/sec. Rt. ICA/CCA = 0.67. Lt. ICA/CCA = 1.02. Prox ECA 102.5/6 cm/sec. Prox ECA 101.6/6.6 cm/sec. Rt. Vert. 42.4/7.5 cm/sec. Lt. Vert. 49.9/8.1 cm/sec. Right Extracranial There is intimal thickening but no significant atherosclerotic plaque noted in the right common carotid artery. There is homogeneous, smooth atherosclerotic plaque noted in the right internal carotid artery. There is intimal thickening but no significant atherosclerotic plaque noted in the right external carotid artery. Antegrade flow is noted in the right vertebral artery. There is heterogeneous, irregular atherosclerotic plaque noted in the left bulb. Left Extracranial There is intimal thickening but no significant atherosclerotic plaque noted in the left common carotid artery. There is heterogeneous, irregular atherosclerotic plaque noted in the left internal carotid artery. There is intimal thickening but no significant atherosclerotic plaque noted in the left external carotid artery. Antegrade flow is noted in the left vertebral artery. Procedure Carotid Duplex 16119. This is a Carotid Duplex examination using B-mode, color flow and specral Doppler. Exam performed in department. VL/Carotid Duplex Ultrasound Interpretation Summary Mild (<50%) stenosis right extracranial internal carotid. Mild (<50%) stenosis left extracranial internal carotid. Flow within the vertebral arteries is antegrade bilaterally. Ordering Physician: Cindy Leslie Referring Physician: Cindy Leslie Performed By: Luna Soriano RVT and Student
== END ==
PROVIDERS: PCP Internal Medicine; Referring Provider Internal Medicine; Visit Provider Internal Medicine
DX: I65.23 Occlusion and stenosis of bilateral carotid arteries (principal)
CPT/HCPCS: 93880

== ENCOUNTER → 2022-12-30 | Outpatient (CLI) | payer MEDICARE, SELFPAY ==
--- NOTE | 2022-12-30 11:08 | STRESSREP ---
Stress Test Report Date: 12/30/2022 Procedure: Exercise tolerance test/imaging study Indications: Coronary artery disease Consent: Per the patient Procedure: The patient exercised on a Laurent protocol for 6 minutes and 51 seconds achieving a peak heart rate of 148 bpm (107% predicted maximal heart rate) with a peak blood pressure 152/56 mmHg and a peak MET capacity of 9.5 METs. The baseline ECG demonstrated normal sinus rhythm. The peak exercise ECG demonstrated no ischemic changes. There were no cardiac dysrhythmias pretest, during exercise, or recovery. The functional capacity was considered average. There was no complaint of chest discomfort during exercise or recovery. The examination was discontinued secondary to target heart rate being achieved. The patient was injected with 11.0 mCi of technetium 99m Cardiolite and subsequently rest SPECT Cardiolite nuclear imaging was obtained in the horizontal long, vertical long, and short axis views. Post-exercise, the patient was injected with 33.8 mCi of technetium 99m Cardiolite and subsequently stress SPECT Cardiolite nuclear imaging was obtained in the horizontal long, vertical long, and short axis views. A gated Cardiolite study at peak stress was obtained. Rest and stress SPECT Cardiolite nuclear imaging status post realignment, normalization, and attenuation correction, demonstrates the appearance of relative uniform tracer uptake and myocardial perfusion appearing within normal limits. There is end systolic thickening and brightening. The gated Cardiolite study demonstrates myocardial thickening and inward wall motion. The reported LVEF is 71%. Impression: 1. Technically adequate (percent predicted maximal heart rate greater than 85%) exercise tolerance test 2. Peak exercise ECG with no ischemic changes 3. There were no cardiac dysrhythmias pretest, during exercise, or recovery 4. Rest and stress SPECT Cardiolite nuclear imaging demonstrate no fixed or reversible perfusion defects. Possible physiological thinning of the apex. 5. The gated Cardiolite study reports an LVEF of 71%. This note was generated with [employer] software. It may contain incorrect words, spelling, and punctuation that were not noted in checking the note before signing.
== END | disposition home or self-care (01) ==
PROVIDERS: PCP Internal Medicine; Visit Provider Internal Medicine
DX: I25.119 Atherosclerotic heart disease of native coronary artery with unspecified angina pectoris (principal); Z95.1 Presence of aortocoronary bypass graft
CPT/HCPCS: 78452; 93017; A9500; A4216

== ENCOUNTER → 2023-01-28 | Outpatient (CLI) | payer MEDICARE, SELFPAY ==
--- NOTE | 2023-01-28 09:55 | CDU_ITS ---
Reason For Study: Carotid Stenosis Rt. Velocities/BP Lt. Velocities/BP Prox CCA 92/10 cm/sec. Prox CCA 158/13 cm/sec. Mid CCA 109/14 cm/sec. Mid CCA 164/14 cm/sec. Dist CCA 92/13 cm/sec. Dist CCA 93/13 cm/sec. Prox ICA 94/13 cm/sec. Prox ICA 83/16 cm/sec. Mid ICA 63/16 cm/sec. Mid ICA 67/16 cm/sec. Dist ICA 82/19 cm/sec. Dist ICA 72/20 cm/sec. Rt. ICA/CCA = 0.9. Lt. ICA/CCA = 0.5. Prox ECA 101/6 cm/sec. Prox ECA 99/6 cm/sec. Rt. Vert. 40/9 cm/sec. Lt. Vert. 49/10 cm/sec. Right Extracranial There is heterogeneous, irregular atherosclerotic plaque noted in the right common carotid artery. There is heterogeneous, irregular atherosclerotic plaque noted in the right internal carotid artery. There is no significant atherosclerotic plaque noted in the right external carotid artery. Antegrade flow is noted in the right vertebral artery. Left Extracranial There is heterogeneous, irregular atherosclerotic plaque noted in the left common carotid artery. There is heterogeneous, irregular atherosclerotic plaque noted in the left internal carotid artery. There is intimal thickening but no significant atherosclerotic plaque noted in the left external carotid artery. Antegrade flow is noted in the left vertebral artery. Procedure Carotid Duplex 48565. This is a Carotid Duplex examination using B-mode, color flow and specral Doppler. Exam performed in department. VL/Carotid Duplex Ultrasound Interpretation Summary Mild (<50%) stenosis right extracranial internal carotid. Mild (<50%) stenosis left extracranial internal carotid. Patent and antegrade vertebrals bilaterally. Ordering Physician: Cindy Leslie Referring Physician: Cindy Leslie Performed By: Tasha Rapp, RDCS, RVT
== END | disposition home or self-care (01) ==
PROVIDERS: PCP Internal Medicine; Referring Provider Internal Medicine; Visit Provider Internal Medicine
DX: I65.23 Occlusion and stenosis of bilateral carotid arteries (principal)
CPT/HCPCS: 93880

== ENCOUNTER → 2023-05-02 | Outpatient (CLI) | payer MEDICARE, SELFPAY ==
[2023-05-02 14:24] LABS: PSA,Total - Annual Screen 2.21 ng/mL (0.00-4.00)
== END | disposition home or self-care (01) ==
LOC: LAB 12:00
PROVIDERS: PCP Internal Medicine; Referring Provider Registered Nurse; Visit Provider Registered Nurse
DX: Z12.5 Encounter for screening for malignant neoplasm of prostate (principal)
CPT/HCPCS: 36415; 84153; G0103

== ENCOUNTER 2023-06-22 13:03 | Observation (INO) | payer MEDICARE, SELFPAY ==
[2023-06-22] VITALS (10 sets, daily range): BP systolic 115–152; BP diastolic 66–87; PULSE 53–88; RESP 16–18; TEMP 36.4–36.8; O2SAT 93–98; BMI 27.3
--- NOTE | 2023-06-22 | PROS_PTH ---
PATIENT: ROB SPEARS LOC: MS3 U#:[id number] AGE/SX: 83/M ROOM: [facility] RE06/22/[address]: Dr. Ángel Talamantes MD : 1940 BED: 1 DIS: 06/23/2023 SPEC #: [id number] RECD: 06/22/23 15:19 STATUS: KASSI BERGER #: [id number] JOSSY: 06/22/23 00:[address]: Ángel Talamantes DEPT: SURGICAL PATHOLOGY RECD BY: Clifton Ramirez ENTERED: 06/23/23 09:30 SP TYPE: TURP OTHR DR: Dr. Cindy Leslie MD Tissues: Prostate, NOS Procedures: Surgery Specimen Level IV HEADER OPERATION: Transurethral resection of prostate with Olympus PRE-OP DIAGNOSIS: BPH with obstruction TISSUE SUBMITTED: Prostate tissue MICROSCOPIC DIAGNOSIS Prostate, transurethral resection: Benign nodular hyperplasia, glandular and stromal types. Chronic inflammation. AM:[place] 06/24/2023 MICROSCOPIC DESCRIPTION Slides are reviewed. GROSS DESCRIPTION Received is one container labeled with the patient's name and designated prostate tissue. The specimen consists of multiple irregular fragments of pink-severino, rubbery, soft tissue that in aggregate weigh 7.3 gm and measure in aggregate 4.0 x 4.0 x 1.0 cm. The entire specimen is submitted in seven cassettes. / SJ:[place] 06/23/2023 TC:3 CPT: 82356
[2023-06-22] MEDS: Lactated Ringers 1,000 ML 15 ML IV (10:45)
[2023-06-22 11:08] LABS: Hematocrit 47.5 % (40-54); Mean Corp Hgb Conc 31.6 g/dL (32-36); Mean Corpuscular Hgb 27.6 pg (27.0-32.0); Mean Corpuscular Volume 87.3 fL (80-94); Mean Platelet Vol. 10.1 fl (6.2-12.0); Platelet Count 144 K/mm3 (150-450); RBC Distribution Width CV 15.7 % (11.6-14.6); RBC Distribution Width SD 49.3 fl (35.1-43.9); Red Blood Count 5.44 M/mm3 (4.6-6.2); White Blood Count 7.6 K/mm3 (4.4-11.0)
[2023-06-22 11:18] LABS: Anion Gap 4 (5-15); BUN 17 mg/dL (7-18); BUN/Creat Ratio 17.4 RATIO (10-20); Calcium,Total 8.5 mg/dL (8.5-10.1); Chloride 108 mmol/L (98-107); Creatinine, Serum 0.98 mg/dL (0.70-1.30); EST Glomerular Filtration Rate 78 mL/min (>60); Est Glom Filt Rate - Afr Amer 94 mL/min (>60); Estimated Creatinine Clearance 57.11 ml/min; Glucose 90 mg/dL (74-106); Potassium 3.9 mmol/L (3.5-5.1); Sodium Level 138 mmol/L (136-145)
--- NOTE | 2023-06-22 13:04 | HP.PCM_ITS ---
[facility] - General General Date of Service: 06/22/23 Chief Complaint: BPH with obstruction HPI Narrative ROB SPEARS, is a 83 M who presents for transurethral resection of the prostate for BPH with obstruction [facility] Medical History (Updated 06/15/23 @ 11:28 by Vijaya Scanlon) BPH (benign prostatic hyperplasia) CAD (coronary artery disease) Cardiology follow-up encounter Carotid stenosis, bilateral Erectile dysfunction High cholesterol History of colon polyps History of echocardiogram History of melanoma History of stress test HTN (hypertension) Hypercholesteremia Leg cramps Non-smoker Prostate disease Wears glasses Wears hearing aid Home Medications aspirin 81 mg chewable tablet 81 mg PO DAILY@0800 04/17/15 [History Last Taken 06/14/23] atorvastatin 80 mg tablet 80 mg PO QHS 10/22/19 [History Last Taken 06/21/23] metoprolol tartrate 25 mg tablet 25 mg PO BID 10/22/19 [History Last Taken 06/22/23] acetaminophen 325 mg tablet 650 mg (2 x 325 mg) PO Q6H PRN PRN Pain Score 1- 08/0210/24/19 [Rx Last Taken Unknown] beta carotene 7,500 mcg (25,000 unit) capsule 25,000 unit PO DAILY 04/07/20 [History Last Taken 06/21/23] cholecalciferol (vitamin D3) 25 mcg (1,000 unit) capsule 25 mcg PO DAILY 04/07/20 [History Last Taken 06/21/23] coenzyme Q10 75 mg capsule (Ultra CoQ10) 75 mg PO DAILY 04/07/20 [History Last Taken 06/21/23] glucosamine-chondroitin 250 mg-200 mg tablet (Osteo Bi-Flex) 2 tab PO QPC 04/07/20 [History Last Taken 06/21/23] Allergy/AdvReac Type Severity Reaction Status Date / Time No Known Allergies Allergy Verified 06/15/23 11:18 Family History Son Cancer esophageal and neuroendocrine Brother Heart disease Father AAA (abdominal aortic aneurysm) Surgical History (Updated 06/15/23 @ 11:28 by Vijaya Scanlon) History of back surgery History of cardiac catheterization History of colonoscopy History of rotator cuff surgery Hx laparoscopic cholecystectomy Social History (Updated 04/08/20 @ 10:[address] William Myles MD) Smoking Status: Never smoker Vital Signs Vital Signs Vital Signs: 06/22/23 11:08 06/22/23 11:08 Temperature 98.3 F Temperature Source Temporal Pulse Rate 55 L Respiratory Rate 18 Respiratory Pattern Normal Blood Pressure 141/67 H Blood Pressure Mean 91 Blood Pressure Source Monitor Blood Pressure Position Semi-Fowlers Blood Pressure Location Left Forearm Pulse Ox 96 Oxygen Delivery Method Room Air Weight Weight: 84.141 kg Body Mass Index (BMI) 27.3 Results Lab / Micro Data 06/22/23 11:00 06/22/23 11:00 Labs: Laboratory Results - last 24 hr 06/22/23 11:00: WBC 7.6, RBC 5.44, Hgb 15.0, Hct 47.5, MCV 87.3, MCH 27.6, MCHC 31.6 L, RDW Std Deviation 49.3 H, RDW Coeff of Bailey 15.7 H, Plt Count 144 L, MPV 10.1, Sodium 138, Potassium 3.9, Chloride 108 H, Carbon Dioxide 26.0, Anion Gap 4 L, BUN 17, Creatinine 0.98, Estim Creat Clear Calc 57.11, Est GFR (MDRD) Af Amer 94, Est GFR (MDRD) Non-Af 78, BUN/Creatinine Ratio 17.4, Glucose 90, Calcium 8.5
--- NOTE | 2023-06-22 13:05 | DCINST_ITS ---
Discharge Instructions Diet Discharge Diet: No restrictions Activity Discharge Activity: Return to Normal Activity Follow Up Care Please Follow Up With: Ángel Talamantes MD Test Results: Test results from this visit will be discussed in further detail at your follow- up appointment, if applicable. Discharge Plan Admission Primary Reason for Your Visit: rahat Attending Provider: Ángel Talamantes Primary Care Provider: Cindy Leslie Discharge Orders/Prescriptions Prescriptions: Continued metoprolol tartrate 25 mg tablet 25 mg PO BID atorvastatin 80 mg tablet 80 mg PO QHS cholecalciferol (vitamin D3) 25 mcg (1,000 unit) capsule 25 mcg PO DAILY Ultra CoQ10 75 mg capsule 75 mg PO DAILY glucosamine-chondroitin 250 mg-200 mg tablet 250-200 mg tablet 2 tab PO QPC beta carotene 25,000 unit capsule 25,000 unit PO DAILY Rx Instructions: administer with a meal aspirin 81 MG tablet,chewable 81 mg PO DAILY@0800 acetaminophen 325 MG tablet 650 mg PO Q6H PRN PRN (Reason: Pain Score 1-10/10) 0RF Discontinued doxazosin 4 mg tablet 4 mg PO QHS Referrals / Follow Up: Cindy Leslie MD [Primary Care Provider] - Disposition Disposition (needs filled in before D/C Order can be placed): Home, Self Care
[2023-06-22] MEDS: Cefazolin 2 GM in 0.9% Normal Saline 100 ML IV (13:35)
--- NOTE | 2023-06-22 14:16 | OP.PCM_ITS ---
Report of Operation Date of Procedure: 06/22/23 Pre-Operative Diagnosis: bph with obstruction Post-Operative Diagnosis: same Surgery/Procedure Performed:: Transurethral section of prostate Description of Surgical Findings:: In the preoperative setting I discussed with the patient how the surgery would be done with expect afterwards. We discussed how a prostate resection is done and we discussed the risk of the surgery including, bleeding, infection, retrograde ejaculation, changes with ejaculation or intercourse,. We discussed the possibility that the resection of the prostate may not alleviate his urinary symptoms. We discussed the small risk of developing scar tissue along the urethral channel and strictures. We also discussed the chance of the prostate could grow back and he may need further surgery or treatment in the future for prostate problems. Patient was taken back to the operating room, timeout procedure was performed, he was identified and marked and placed on the operating room table. He underwent general anesthesia. He was placed in dorsolithotomy position. Penis and testicles were prepped and draped in usual sterile fashion. Went into the bladder using the visual obturator with a resectoscope. Once inside the bladder identified the right and left ureteral orifice. I then identified the prostate and the anatomy of the prostate. I marked out the area of the sphincter and the verumontanum was identified. I then proceeded with the prostate resection first resected the median lobe. And then resected the right lobe of the prostate. Then to resect the left lobe of the prostate. I then resected the apical tissue of the prostate. This was a complete resection of all obstructive tissue to improve voiding and relieve obstruction. I then made sure that there was no injury to the sphincter or the verumontanum was still intact. At the end of the resection all the chips were Ellik out of the bladder. I then identified the left and right ureteral orifice and these were confirmed to be in good position and effluxing and not injured. The resectoscope was removed, a 22 K[place] catheter was placed into the bladder on continuous irrigation. And the urine was fairly light pink color and draining normally. He was taken back to the PACU in good condition. Surgeon: Ángel Talamantes Type of Anesthesia: General Drains: [address] Estimated Blood Loss (mL): 0 Admit VTE Documentation VTE Present on Admission: No VTE Mechan Device Prophylaxis: SCD's VTE Pharm Prophylaxis ordered?: No
[2023-06-22] MEDS: 0.9% Normal Saline 1,000 ML 125 ML IV (16:26)
[2023-06-22] MEDS: Ketorolac 15 MG/ML Vial IV (17:44)
[2023-06-22] MEDS: 0.9% Saline Lock 10 ML Syringe IV (17:44)
[2023-06-22] MEDS: Ciprofloxacin 400 MG/200 ML BAG 200 MG IV (21:47)
[2023-06-22] MEDS: Atorvastatin Calcium 80 MG Tablet PO (21:49)
[2023-06-22] MEDS: Docusate Sodium 100 MG Capsule 200 MG PO (21:49)
[2023-06-23 00:07] VITALS: BP 148/65; PULSE 57; RESP 16; TEMP 36.8; O2SAT 95
[2023-06-23] MEDS: 0.9% Normal Saline 1,000 ML 125 ML IV ×2 (00:34→08:05)
[2023-06-23 04:07] VITALS: BP 151/63; PULSE 62; RESP 16; TEMP 37; O2SAT 96
--- NOTE | 2023-06-23 07:23 | PCM.PN.GU ---
Subjective Subjective Status post transurethral resection of the prostate everything went well, we will take out the catheter this morning and if he is able to urinate okay can go home today without a catheter. Objective Data Objective Data Vital Signs: Vital Signs Temp Pulse Resp BP Pulse Ox O2 Del Method 98.6 F 62 16 151/63 H 96 Room Air 06/23/23 04:07 06/23/23 04:07 06/23/23 04:07 06/23/23 04:07 06/23/23 04:07 06/23/23 04:07 Oxygen Delivery Method Room Air Weight: 84.141 kg Body Mass Index (BMI) 27.3 Intake & Output: Intake and Output for Last 24 Hours 06/21/23 06/22/23 06/23/23 23:59 23:59 23:59 Intake Total 2092.17 / 2492.17 627.08 / 627.08 Output Total 1575 / 1575 Balance 517.17 / 917.17 627.08 / 627.08 Lab / Micro Data 06/22/23 11:00 06/22/23 11:00 Labs: Laboratory Results - last 24 hr 06/22/23 11:00: WBC 7.6, RBC 5.44, Hgb 15.0, Hct 47.5, MCV 87.3, MCH 27.6, MCHC 31.6 L, RDW Std Deviation 49.3 H, RDW Coeff of Bailey 15.7 H, Plt Count 144 L, MPV 10.1, Sodium 138, Potassium 3.9, Chloride 108 H, Carbon Dioxide 26.0, Anion Gap 4 L, BUN 17, Creatinine 0.98, Estim Creat Clear Calc 57.11, Est GFR (MDRD) Af Amer 94, Est GFR (MDRD) Non-Af 78, BUN/Creatinine Ratio 17.4, Glucose 90, Calcium 8.5
[2023-06-23 08:00] VITALS: BP 163/66; PULSE 93; RESP 18; TEMP 36.8; O2SAT 95
[2023-06-23 08:06] VITALS: PULSE 93
[2023-06-23] MEDS: Metoprolol Tartrate 25 MG Tablet PO (08:06)
--- NOTE | 2023-06-23 09:24 | CASEMGMT ---
Social Work SW met with pt and dicussed advance directives. 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 HCPOA names his Geovanni Ibarra. SW informed pt that documents are not on file and requested they be brought in for scanning into EMR. JUNIOR Diane
--- NOTE | 2023-06-23 10:08 | PHA.DC_ITS ---
Pharmacy [facility] Recon[facility] Pharm[facility] Service has performed discharge medication reconciliation for this patient. No new medications at time of discharge review. Medications reviewed are from previously reported home medications. The patient's discharge medication list was reviewed for discrepancies and discrepancies were resolved. Medications at Discharge Home Medications aspirin 81 mg chewable tablet 81 mg PO DAILY@0800 04/17/15 atorvastatin 80 mg tablet 80 mg PO QHS 10/22/19 metoprolol tartrate 25 mg tablet 25 mg PO BID 10/22/19 acetaminophen 325 mg tablet 650 mg (2 x 325 mg) PO Q6H PRN PRN Pain Score 1- 08/0210/24/19 beta carotene 7,500 mcg (25,000 unit) capsule 25,000 unit PO DAILY 04/07/20 cholecalciferol (vitamin D3) 25 mcg (1,000 unit) capsule 25 mcg PO DAILY 04/07/20 coenzyme Q10 75 mg capsule (Ultra CoQ10) 75 mg PO DAILY 04/07/20 glucosamine-chondroitin 250 mg-200 mg tablet (Osteo Bi-Flex) 2 tab PO QPC 04/07/20
[2023-06-23] MEDS: Ciprofloxacin 400 MG/200 ML BAG 200 MG IV (10:22)
[2023-06-23] MEDS: Docusate Sodium 100 MG Capsule 200 MG PO (10:22)
[2023-06-23 11:40] VITALS: BP 131/79; PULSE 52; RESP 18; TEMP 36.8; O2SAT 98
== END 2023-06-23 11:45 | disposition home or self-care (01) ==
LOC: SDC 16:12 → MS3 17:38
PROVIDERS: Anesthesiology; Admitting Provider Urology; PCP Internal Medicine; Referring Provider Urology; Visit Provider Urology
PROC: (CPT 52601; principal; 2023-06-22 11:45)
DX: N40.1 Benign prostatic hyperplasia with lower urinary tract symptoms (principal); N13.8 Other obstructive and reflux uropathy; R35.1 Nocturia; R35.0 Frequency of micturition; I25.10 Atherosclerotic heart disease of native coronary artery without angina pectoris; E78.00 Pure hypercholesterolemia, unspecified; I10 Essential (primary) hypertension; Z79.899 Other long term (current) drug therapy; Z79.82 Long term (current) use of aspirin
CPT/HCPCS: 52601; 00914; 80048; 85027; 88305; 93005; 96361; 96365; 96366; 96375; 99221; J7030; J7120; A4216; G0378; J0744; J2405

== ENCOUNTER 2023-12-30 14:30 | Outpatient (RCR) | payer MEDICARE, SELFPAY ==
--- NOTE | 2023-12-07 13:54 | HP.PTEVAL_ITS ---
Patient's Visit Information Visit Information Visit Information: ROB SPEARS is a 83 year old M referred to Physical Therapy by Dr. Cindy Leslie MD with a diagnosis of L knee pain. Date of Evaluation: 12/07/23 Physical Therapist: Bebo Mack, DPT, OCS, CSCS Visit Plan Frequency: 1x/Week Duration: 2-4 Weeks Plan: weekly x 2-4 to progress HEP(doing HS, quad and ITB stretch and knee flexion ROM) progress to hip and knee strength next session if improved and tolerating well. All via HEP Subjective Subjective: has had knee pain. Flu shot last fall and did not feel good for many weeks afterwards. Knees then felt like sponges. L knee may have hyperextended and got painful when walking. No previous knee problems. R knee now is decent. L knee was hurting upon f/u with Dr. Leslie. Pt wanted MRI and doc said therapy first. Pain in the last week has been 0 at rest, Gets up 3- 4/10 with walking on uneven ground. Pain is anterior. Sleep is OK. Activities are close to normal. Basic ADLS : normal. steps can be painful and weak. Hobbies: not many. No regular exercises. Active in summer outdoors Objective Objective: Walks into PT I without antalgia today, no pain. Transfers bed and chair I, steps reciprocally with just slight L posterior knee pain descending > ascending. Tender to touch posterior joint line. L knee moderately. max tight in HS , mod in quad and ITB B. AROM 132 L knee flexion with posterior pain vs 138 R knee without pain. full extension B. ankle and hip AROM WFL. reflexes 2/3 patella and achilles B. Sensation WNL gross light touch. Strength hips rotation and abd and ext 3+/5, flexion 4- with contralateral rotation. knee 4+/5 strength ext and flexion without pain ankle AROM strength 4+/5. Balance/Special Test Scores Lower Extremity Functional Score: 52 Goals Goal 1:: Full aROM L knee without pain Goal Time Frame: 2-4 Weeks Goal 2:: Pain in knees 1/10 at worst adn 90% better overall. Goal Time Frame: 2-4 Weeks Goal 3:: I appropr HEP to limit future problems Goal Time Frame: 2-4 Weeks Rehabilitation Potential Physical Therapy Diagnosis: L knee pain limiting function but improving. Rehabilitation Potential: Good Anticipated Interventions Patient/Client Instruction: Educate patient on: Condition and Plan of Care For the Purpose of:: To decrease pain, To increase ROM, To improve nutrient delivery to tissue and To improve muscle performance and motor function Therapeutic Exercise to Include: Strength training, Flexibilty training, Passive ROM and Active ROM For the Purpose of:: To decrease pain, To decrease swelling/inflammation, To increase ROM, To improve nutrient delivery to tissue, To improve muscle perf ormance and motor function, To increase tolerance to activity/condition/position, To improve ability of physical actions for home/community/work/leisure and To improve gait and locomotor functions Text: Thank you for the opportunity to evaluate your patient. For Medicare and Medicare HMO plans, please review the plan of care and approve it. It will need to be FAXED BACK to us at [phone] for Medicare purposes. For Medicare only, by signing this I certify the plan of care. Please let me know if there are questions or concerns regarding this plan of care. Physician Signature: Date:
--- NOTE | 2024-02-06 13:12 | HP.PT.NRP ---
Patient Information Patient Information: ROB SPEARS was seen in my office for initial evaluation on 12/07/23. The following Plan of Care was established for this patient: POC Established Initial Frequency: 1x/Week Initial Duration: 2-4 Weeks Anticipated Interventions Patient/Client Instruction: Educate patient on: Condition and Plan of Care For the Purpose of:: To decrease pain, To increase ROM, To improve nutrient delivery to tissue and To improve muscle performance and motor function Therapeutic Exercise to Include: Strength training, Flexibilty training, Passive ROM and Active ROM For the Purpose of:: To decrease pain, To decrease swelling/inflammation, To increase ROM, To improve nutrient delivery to tissue, To improve muscle performance and motor function, To increase tolerance to activity/condition/position, To improve ability of physical actions for home/community/work/leisure and To improve gait and locomotor functions Last Seen Last Seen: This patient was last seen in our office 12/15/23. Pertinent comments regarding their Physical therapy will appear below: Pt seen two visits of [facility] instruct and was to be seen weekly but did not return as he no showed for his last scheduled visit. At this point, I will discontinue due to nonattendance. At this point I will be discontinuing this patient from physical therapy. I would be happy to see this patient again in the future if found appropriate by the physician. Thank you! Bebo Mack, DPT, OCS, CSCS Balance/Gait/Functional tests Balance/Special Test Scores Lower Extremity Functional Score: 52
== END 2023-12-30 19:00 | disposition home or self-care (01) ==
LOC: PT 14:30
PROVIDERS: PCP Internal Medicine; Referring Provider Internal Medicine; Visit Provider Internal Medicine
DX: M25.562 Pain in left knee (principal)
CPT/HCPCS: 97110; 97161; 97530

== ENCOUNTER → 2024-01-11 | Outpatient (CLI) | payer MEDICARE, SELFPAY ==
--- NOTE | 2024-01-11 06:58 | MRI_ITS ---
STUDY: MRI LEFT KNEE REASON FOR EXAM: Male, 83 years old. Knee pain, left anterior. TECHNIQUE: Standardized fat and water weighted pulse sequences were obtained in all 3 orthogonal planes. COMPARISON: Left knee radiographs dated 10/11/2023. FINDINGS: Normal medial meniscus. Normal hyaline cartilage of the medial femorotibial compartment. Normal medial femoral condyle and tibial plateau. There is a minimal grade I MCL sprain with periligamentous edema (coronal T2 series 7 images 15-16). Normal distal semimembranosus, gracilis and semitendinosus tendons. There is a partial tear of the posterior lateral meniscal root (sagittal PD series 4 images 27-30). Normal hyaline cartilage of the lateral femorotibial compartment. Normal lateral femoral condyle and tibial plateau. Normal proximal tibiofibular articulation. Normal lateral collateral (fibular) ligament. Normal popliteus tendon. Normal biceps femoris tendon. Normal anterior cruciate ligament (ACL). There is a longitudinal split tear of the PCL (sagittal T2 series 5 images 12-14). Normal congruent patellofemoral articulation. Normal hyaline cartilage of the patellofemoral compartment. Normal medial and lateral patellar retinaculum. Normal quadriceps tendon. Normal patellar tendon. Normal Hoffa''s fat pad. There is a tiny joint effusion. There is a small popliteal cyst. There is mild subcutaneous soft tissue edema along the anterior aspect of the knee. The otherwise visualized osseous structures are unremarkable. MRI/Lower Ext Joint Only (Routine) IMPRESSION: Partial tear of the posterior lateral meniscal root. Minimal grade I MCL sprain. Longitudinal split tear of the PCL. Tiny joint effusion, with a small popliteal cyst. Mild subcutaneous soft tissue edema along the anterior aspect of the knee. Electronically Signed: Macho Romero MD at 9:13 EDT ,
== END | disposition home or self-care (01) ==
PROVIDERS: PCP Internal Medicine; Referring Provider Internal Medicine; Visit Provider Internal Medicine
DX: M25.562 Pain in left knee (principal)
CPT/HCPCS: 73721

== ENCOUNTER → 2024-11-07 | Outpatient (CLI) | payer MEDICARE, SELFPAY ==
--- NOTE | 2024-11-07 09:53 | ECHOD_ITS ---
Reason For Study: MURMUR Procedure This was a 2D Doppler, Color Flow transthoracic echocardiogram. Exam performed in department. Left Ventricle Normal LV size. Left ventricular systolic function is normal. The left ventricular ejection fraction is 60 %. Stage 1 diastolic dysfunction. No regional wall motion abnormalities noted. Right Ventricle Normal RV size. Normal systolic function. Atria Normal left atrium. Normal right atrium. Mitral Valve Normal mitral valve. Tricuspid Valve Normal tricuspid valve. Mild (1+) tricuspid valve insufficiency. Pulmonary artery systolic pressure is 30 mmHg. Aortic Valve Trisinus/trileaflet aortic valve. Pulmonic Valve Normal pulmonic valve. Great Vessels Mildly dilated aortic root. The pulmonary artery is normal size. Normal inferior vena cava. Pericardium/Pleural No pericardial effusion. MMode/2D Measurements & Calculations LVIDd: 4.7 cm IVSd: 1.1 cm LVOT diam: 2.1 cm LVIDs: 2.5 cm LVPWd: 0.94 cm LVOT area: 3.5 cm2 RVDd: 4.2 cm FS: 46.3 % asc Aorta Diam: 3.9 cm LAV(MOD-bp): 52.0 ml LVAd ap4: 25.6 cm2 LAV(MOD-bp) Indexed: 26.0 ml/m2 LVLd ap4: 7.9 cm LAV(MOD-sp2): 70.9 ml EDV(MOD-sp4): 67.1 ml LAV(MOD-sp4): 38.1 ml EDV(sp4-el): 70.3 ml LVAs ap4: 15.5 cm2 LVLs ap4: 7.0 cm ESV(MOD-sp4): 29.2 ml ESV(sp4-el): 29.1 ml EF(MOD-sp4): 56.4 % EF(sp4-el): 58.5 % LVAd ap2: 25.2 cm2 SV(MOD-sp4): 37.8 ml SV(MOD-sp2): 40.8 ml LVLd ap2: 8.0 cm SI(MOD-sp4): 18.9 ml/m2 SI(MOD-sp2): 20.4 ml/m2 EDV(MOD-sp2): 65.1 ml EDV(sp2-el): 67.5 ml LVAs ap2: 13.6 cm2 LVLs ap2: 6.6 cm ESV(MOD-sp2): 24.2 ml ESV(sp2-el): 24.0 ml EF(MOD-sp2): 62.8 % SV(sp4-el): 41.1 ml Ao sinus diam: 3.[address] Junction: 3.4 cm LA dimension(2D): 4.1 cm LA A4 area: 16.1 cm2 RA A4 area: 16.6 cm2 TAPSE: 2.0 cm Time Measurements MV dec time: 0.21 sec Doppler Measurements & Calculations MV E max mathew: 73.1 cm/sec Lat Peak E' Mathew: 10.0 cm/sec Med Peak E' Mathew: 9.5 cm/sec MV A max mathew: 81.7 cm/sec E/E' lat: 7.3 E/E' med: 7.7 MV E/A: 0.90 MV dec slope: 344.3 cm/sec2 Ao V2 max: 138.1 cm/sec LV V1 max: 84.8 cm/sec Ao max P.6 mmHg LV V1 max P.9 mmHg Ao V2 mean: 91.2 cm/sec LV V1 mean P.4 mmHg Ao mean P.8 mmHg LV V1 mean: 54.7 cm/sec Ao V2 VTI: 32.3 cm LV V1 VTI: 18.9 cm AV (velocity ratio): 0.59 JUAN(I,D): 2.0 cm2 JAUN(V,D): 2.1 cm2 SV(LVOT): 65.9 ml PA V2 max: 116.9 cm/sec TR max mathew: 252.7 cm/sec TR max P.5 mmHg ECHO/Echo Complete Interpretation Summary Normal LV size. Left ventricular systolic function is normal. The left ventricular ejection fraction is 60 %. Stage 1 diastolic dysfunction. Ordering Physician: John Paul Duque Referring Physician: Cindy Leslie M.D. Performed By: Selma Chapa RDCS
== END | disposition home or self-care (01) ==
LOC: CVS 09:50
PROVIDERS: PCP Internal Medicine; Referring Provider Internal Medicine Cardiovascular Disease; Visit Provider Internal Medicine Cardiovascular Disease
DX: R01.1 Cardiac murmur, unspecified (principal)
CPT/HCPCS: 93306

== ENCOUNTER 2025-02-11 12:39 | Emergency (ER) | payer MEDICARE, SELFPAY ==
[2025-02-11 12:40] VITALS: BP 153/68; PULSE 61; RESP 18; TEMP 36.3; O2SAT 98; BMI 27.3
--- NOTE | 2025-02-11 12:59 | EKG12_ITS ---
Test Reason : CP Blood Pressure : */* mmHG Vent. Rate : 59 BPM Atrial Rate : 59 BPM P-R Int : 228 ms QRS Dur : 78 ms QT Int : 404 ms P-R-T Axes : 14 -8 60 degrees QTcB Int : 399 ms Sinus bradycardia with 1st degree A-V block Otherwise normal ECG Confirmed by JUAN FRANCISCO PERALES, RICKIE ([id number]), editorial director CITLALLI HERNANDEZ ([id number]) on 02/13/2025 8:18:10 AM Referred By: MARINE/JOSEY Confirmed By: RICKIE CHICAS MD
--- NOTE | 2025-02-11 13:00 | RAD_ITS ---
PROCEDURE: CHEST PA AND LATERAL 02/11/2025 REASON FOR EXAM: CHEST PAIN TECHNIQUE: Frontal and lateral views of the chest. COMPARISON: None. FINDINGS: Hardware: None. Heart: The heart size is normal. Mediastinum: The mediastinal contour is unremarkable. Lungs: No focal consolidation, pleural effusion or pneumothorax. Bones: Degenerative changes are identified within the thoracic spine. Surgical anchors within the left humeral head. RAD/Chest PA and Lateral IMPRESSION: NEGATIVE CHEST Reading Location: [id number]
--- NOTE | 2025-02-11 13:03 | ED.VIS.CHEST ---
HPI <MANE Quiros - Last Filed: 02/11/25 18:47> History of Present Illness Chief Complaint: Chest Pain Narrative Narrative: Patient presenting today due to pain under his right breast that radiates across his lower chest that he has had since yesterday. Nothing seems to make the pain better or worse, it is not exertional. He does have a history of cardiac stents and CAD. He denies fevers, chills, abdominal pain, nausea, and vomiting. He had a echocardiogram on 11/07/24 and showed an EF of 60% with stage I diastolic dysfunction. He had a unremarkable stress test in December 2022. 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 PE Risk Factors: Negative for Recent Travel/Surgery, Recent Immobilization, Prior DVT or PE or Cancer PFS <MANE Quiros - Last Filed: 02/11/25 18:47> [facility] Medical History Wears hearing aid Wears glasses Prostate disease High cholesterol Non-smoker Leg cramps History of echocardiogram History of stress test Cardiology follow-up encounter Erectile dysfunction CAD (coronary artery disease) History of melanoma Carotid stenosis, bilateral History of colon polyps HTN (hypertension) BPH (benign prostatic hyperplasia) Hypercholesteremia Home Medications ?Medication ?Instructions ?Recorded ?Last Taken ?Type aspirin 81 mg chewable tablet 81 mg PO DAILY@0800 04/17/15 02/11/25 History atorvastatin 80 mg tablet 80 mg PO QHS 10/22/19 02/10/25 History metoprolol tartrate 25 mg tablet 25 mg PO BID 10/22/19 02/11/25 History beta carotene 7,500 mcg (25,000 25,000 unit PO DAILY 04/07/20 02/10/25 History unit) capsule cholecalciferol (vitamin D3) 25 25 mcg PO DAILY 04/07/20 02/11/25 History mcg (1,000 unit) capsule coenzyme Q10 75 mg capsule (Ultra 75 mg PO DAILY 04/07/20 02/10/25 History CoQ10) glucosamine-chondroitin 250 mg-200 2 tab PO QPC 04/07/20 02/10/25 History mg tablet (Osteo Bi-Flex) acetaminophen 325 mg tablet 650 mg PO Q6H PRN Pain Score 02/11/25 02/10/25 History 1-08/02 lisinopril 2.5 mg tablet 2.5 mg PO DAILY 02/11/25 02/11/25 History tamsulosin 0.4 mg capsule (Flomax) 0.4 mg PO DAILY 02/11/25 02/11/25 History Allergy/AdvReac Type Severity Reaction Status Date / Time No Known Allergies Allergy Verified 02/11/25 12:40 Family History Son Cancer esophageal and neuroendocrine Brother Heart disease Father AAA (abdominal aortic aneurysm) Surgical History History of cardiac catheterization Hx laparoscopic cholecystectomy History of colonoscopy History of rotator cuff surgery History of back surgery Social History Smoking Status: Never smoker ROS <MANE Quiros - Last Filed: 02/11/25 18:47> ROS ED Constitutional Constitutional ED: Denies chills or fever(s) Cardiovascular Cardiovascular: Reports chest pain; Denies palpitations Respiratory/Chest Respiratory/Chest: Denies cough or dyspnea Gastrointestinal Gastrointestinal: Denies abdominal pain, nausea or vomiting Musculoskeletal Musculoskeletal: Denies arthralgias or myalgias Integumentary Denies rash Neurologic Neurologic: Denies weakness EXAM <MANE Quiros - Last Filed: 02/11/25 18:47> Physical Exam Const Vital Signs: 02/11/25 12:40 02/11/25 12:57 02/11/25 13:39 Temperature 97.3 F L Temperature Source Temporal Pulse Rate 61 56 L Respiratory Rate 18 13 Respiratory Effort Normal Non-Labored Blood Pressure 153/68 H 137/68 H Blood Pressure Mean 96 91 Pulse Ox 98 96 Oxygen Delivery Method Room Air Room Air 02/11/25 14:00 02/11/25 14:33 Temperature 98.7 F Temperature Source Pulse Rate 54 L 53 L Respiratory Rate 18 18 Respiratory Effort Blood Pressure 117/55 L 117/59 L Blood Pressure Mean 75 78 Pulse Ox 94 99 Oxygen Delivery Method Room Air Positive well nourished, well developed and no apparent distress General Appearance ED: well developed HEENT Reports normocephalic and head/scalp atraumatic Mouth ED: Yes moist mucous membranes normal Eyes PERRL and EOMs intact bilaterally Neck full ROM and supple Chest Wall inspection of chest normal Resp normal respiratory effort and clear to auscultation bilaterally Resp Narrative: Pain to palpation under the right breast, no overlying bruising or rash Cardio regular rate and regular rhythm GI soft to palpation, non-tender, non-distended and no masses Back/Spine normal ROM and normal to inspection Extremity normal to inspection and full ROM Neuro oriented x3, CN's II-XII intact bilaterally, moves all extremities, no focal motor deficits and no sensory deficits noted Sensorium / Orientation: awake and alert Psych mental status grossly normal and thought process normal Skin no rashes or lesions noted and no wounds <Dr. Tigre Swanson DO - Last Filed: 02/11/25 14:33> Physical Exam Const Vital Signs: 02/11/25 12:40 02/11/25 12:57 02/11/25 13:39 Temperature 97.3 F L Temperature Source Temporal Pulse Rate 61 56 L Respiratory Rate 18 13 Respiratory Effort Normal Non-Labored Blood Pressure 153/68 H 137/68 H Blood Pressure Mean 96 91 Pulse Ox 98 96 Oxygen Delivery Method Room Air Room Air 02/11/25 14:00 02/11/25 14:33 Temperature 98.7 F Temperature Source Pulse Rate 54 L 53 L Respiratory Rate 18 18 Respiratory Effort Blood Pressure 117/55 L 117/59 L Blood Pressure Mean 75 78 Pulse Ox 94 99 Oxygen Delivery Method Room Air [facility] <MANE Quiros - Last Filed: 02/11/25 18:47> [facility] Narrative Medical decision making narrative: Patient presenting today with pain under his right breast that radiates across his lower chest that started yesterday. Cardiac workup obtained. Given his pain being to the lower chest, abdominal labs were also obtained to assess for hepatobiliary etiology and pancreatitis. On exam his abdomen is soft and nontender and he does not have any of abdominal pain. His CBC, CMP, lipase and troponin are unremarkable. He reported having pain with urinating, therefore UA obtained and is negative for UTI. EKG is sinus rhythm. Chest x-ray negative for cardiopulmonary abnormality. Patient is a low Wells and modified [place] score, low suspicion for PE. He does have reproducible tenderness below the right breast. Suspect chest wall strain, he has been doing a lot of yard work recently. I recommended he follow-up with his PCP and he will be discharged home in stable condition. Lab Data Labs: Laboratory Results - last 24 hr 02/11/25 02/11/25 13:20 13:25 WBC 7.2 RBC 5.12 Hgb 14.2 Hct 42.7 MCV 83.4 MCH 27.7 MCHC 33.3 RDW Std Deviation 45.1 H RDW Coeff of Bailey 14.8 H Plt Count 153 MPV 10.0 Immature Gran % (Auto) 0.400 Neut % (Auto) 69.6 Lymph % (Auto) 18.0 L [place] % (Auto) 9.0 Eos % (Auto) 2.4 Baso % (Auto) 0.6 Absolute Neuts (auto) 5.0 Absolute Lymphs (auto) 1.30 Nucleated RBC % 0 Sodium 137 Potassium 4.3 Chloride 101 Carbon Dioxide 28.0 Anion Gap 8 BUN 16 Creatinine 0.94 Estim Creat Clear Calc 58.50 Est GFR (MDRD) Non-Af 80 BUN/Creatinine Ratio 16.7 Glucose 103 H Calcium 9.0 Total Bilirubin 0.73 Direct Bilirubin 0.35 H AST 29 ALT 29 Alkaline Phosphatase 84 Troponin T High Sens 19 Total Protein 6.6 Albumin 3.7 Globulin 2.9 Lipase 38 Urine Color Yellow Urine Clarity Clear Urine pH 6.5 Ur Specific [place] 1.015 Urine Protein 15 H Urine Glucose (UA) Normal Urine Ketones Negative Urine Occult Blood Negative Urine Nitrite Negative Urine Bilirubin Negative Urine Urobilinogen Normal Ur Leukocyte Esterase 25 H Urine RBC 0 SEEN Urine WBC 0-5 SEEN Ur Squamous Epith Cells 0-5 SEEN Urine Bacteria 1+ Urine Mucus 0 SEEN Radiography X-Ray: Read by ED Physician Diagnostic Testing: Clinical Impression(s) from Imaging Studies Chest X-Ray 02/11/25 13:00 IMPRESSION: NEGATIVE CHEST Reading Location: [facility] EKG Initial EKG: Comments: 59 bpm, sinus bradycardia, no ST elevation, interpreted by attending ED physician <Dr. Tigre Swanson, DO - Last Filed: 02/11/25 14:33> [facility] History & Record Review Discussion w/independent historian: Patient Additional record(s) reviewed:: Prior outpatient record, Prior ED visit and Prior labs Lab Data Attestation: I reviewed the patient's lab results. Labs: Laboratory Results - last 24 hr 02/11/25 02/11/25 13:20 13:25 WBC 7.2 RBC 5.12 Hgb 14.2 Hct 42.7 MCV 83.4 MCH 27.7 MCHC 33.3 RDW Std Deviation 45.1 H RDW Coeff of Bailey 14.8 H Plt Count 153 MPV 10.0 Immature Gran % (Auto) 0.400 Neut % (Auto) 69.6 Lymph % (Auto) 18.0 L [place] % (Auto) 9.0 Eos % (Auto) 2.4 Baso % (Auto) 0.6 Absolute Neuts (auto) 5.0 Absolute Lymphs (auto) 1.30 Nucleated RBC % 0 Sodium 137 Potassium 4.3 Chloride 101 Carbon Dioxide 28.0 Anion Gap 8 BUN 16 Creatinine 0.94 Estim Creat Clear Calc 58.50 Est GFR (MDRD) Non-Af 80 BUN/Creatinine Ratio 16.7 Glucose 103 H Calcium 9.0 Total Bilirubin 0.73 Direct Bilirubin 0.35 H AST 29 ALT 29 Alkaline Phosphatase 84 Troponin T High Sens 19 Total Protein 6.6 Albumin 3.7 Globulin 2.9 Lipase 38 Urine Color Yellow Urine Clarity Clear Urine pH 6.5 Ur Specific [place] 1.015 Urine Protein 15 H Urine Glucose (UA) Normal Urine Ketones Negative Urine Occult Blood Negative Urine Nitrite Negative Urine Bilirubin Negative Urine Urobilinogen Normal Ur Leukocyte Esterase 25 H Urine RBC 0 SEEN Urine WBC 0-5 SEEN Ur Squamous Epith Cells 0-5 SEEN Urine Bacteria 1+ Urine Mucus 0 SEEN Radiography Diagnostic Testing: Clinical Impression(s) from Imaging Studies Chest X-Ray 02/11/25 13:00 IMPRESSION: NEGATIVE CHEST Reading Location: [facility] Treatment and Re-Evaluation :: I have personally performed a face to face assessment of the patient and have reviewed the YUMIKO Note. I performed a substantive portion of the visit including all aspects of the following. My keenan findings include: History is a 4-year-old male presenting to the emergency room for abdominal/chest pain. Patient notes a very focal area on the right anterior lower chest wall that is tender to palpation. He notes he has been working outside recently. Patient states that yesterday he developed the pain on the right side of his abdomen that progressively radiated over towards the left. No vomiting or diarrhea here. He states it has resolved today. Exam is abdomen is benign. Heart is regular without murmur. Lung sounds hide. Right anterior lower chest wall is tender to palpation along the costochondral border. Medical Decison Making basic blood work was negative. Troponin is within normal limits and symptoms have been present for greater than 8 hours. EKG is normal sinus. My independent interpretation of the chest x-ray has no acute process. At this point I think the patient could be discharged home. Recommend return for follow-up with primary care return if worsening Discharge Plan Triage Chief Complaint: Chest Pain ED Midlevel Provider: Dalila Lyle ED Provider: Tigre Swanson Dx/Rx/DC Orders Clinical Impression: Chest pain of uncertain etiology Instructions: ED Chest Pain, Uncertain Cause Prescriptions: No Action metoprolol tartrate 25 mg tablet 25 mg PO BID atorvastatin 80 mg tablet 80 mg PO QHS cholecalciferol (vitamin D3) 25 mcg (1,000 unit) capsule 25 mcg PO DAILY Ultra CoQ10 75 mg capsule 75 mg PO DAILY glucosamine-chondroitin [Osteo Bi-Flex] 250-200 mg tablet 2 tab PO QPC beta carotene 25,000 unit capsule 25,000 unit PO DAILY Rx Instructions: administer with a meal aspirin 81 MG tablet,chewable 81 mg PO DAILY@0800 lisinopril 2.5 mg tablet 2.5 mg PO DAILY tamsulosin [Flomax] 0.4 mg capsule 0.4 mg PO DAILY acetaminophen 325 MG tablet 650 mg PO Q6H PRN Primary Care Provider: Cindy Leslie Referrals: Cindy Leslie MD [Primary Care Provider] - 5-7 Days Activity Restrictions/Additional Instructions: Follow-up with your PCP, return for any worsening symptoms. Print Language: Ghanaian Disposition Disposition: Home, Self Care Discharge Date/Time: 02/11/25 14:37
[2025-02-11 13:37] LABS: Basophil# 0.04 X10^3/uL; Basophil% 0.6 % (0-1); Eosinophil# 0.17 X10^3/uL; Eosinophils% 2.4 % (0-5); Hematocrit 42.7 % (40-54); Hemoglobin 14.2 g/dL (13.0-16.5); Mean Corp Hgb Conc 33.3 g/dL (32-36); Mean Corpuscular Hgb 27.7 pg (27.0-32.0); Mean Corpuscular Volume 83.4 fL (80-94); Monocyte# 0.65 X10^3/uL; NRBC Flagged by Analyzer 0 % (0-5); Neutrophil # 5.02 X10^3/uL (2.7-7.7); Neutrophil % 69.6 % (47-70); Platelet Count 153 K/mm3 (150-450); RBC Distribution Width CV 14.8 % (11.6-14.6); RBC Distribution Width SD 45.1 fl (35.1-43.9); Red Blood Count 5.12 M/mm3 (4.6-6.2); White Blood Count 7.2 K/mm3 (4.4-11.0)
[2025-02-11 13:39] VITALS: BP 137/68; PULSE 56; RESP 13; O2SAT 96
[2025-02-11 13:52] LABS: Mucous, Urine 0 SEEN /hpf (<or=2+); Red Blood Cells-Urine 0 SEEN /hpf (0-5)
[2025-02-11 14:00] VITALS: BP 117/55; PULSE 54; RESP 18; O2SAT 94
[2025-02-11 14:03] LABS: Color, Urine Yellow (Yellow); Glucose, Dipstick Normal (Normal); Ketone-Dipstick Negative (Negative); Leukocyte Esterase-Dipstick 25 /ul (Negative); Nitrite-Dipstick Negative (Negative); Occult Blood-Urine Negative /ul (Negative); Protein-Dipstick 15 mg/dl (Negative); Specific Gravity, Urine 1.015 (1.002-1.030); Urine Bilirubin Dipstick Negative (Negative); Urine Clarity Clear (Clear); Urine Urobilinogen Normal (Normal); Urine pH 6.5 (5.0 - 8.0)
[2025-02-11 14:13] LABS: White Blood Cells 0-5 SEEN /hpf (0-5)
[2025-02-11 14:14] LABS: Bacteria 1+ /hpf (None Seen); Squamous Epithelial Cells - UA 0-5 SEEN /hpf (0-5)
[2025-02-11 14:24] LABS: AST(SGOT) 29 U/L (<=37); Alanine Aminotransfer ALT/SGPT 29 U/L (<=46); Albumin, Serum 3.7 g/dL (3.4-4.8); Alkaline Phosphatase 84 U/L (40-129); Anion Gap 8 (5-15); BUN 16 mg/dL (4-19); BUN/Creat Ratio 16.7 RATIO (10-20); Bilirubin, Direct 0.35 mg/dL (0.00-0.30); Chloride 101 mmol/L (98-108); Creatinine, Serum 0.94 mg/dL (0.70-1.20); EST Glomerular Filtration Rate 80 (>60); Globulin 2.9 g/dL (2.2-4.2); Glucose 103 mg/dL (70-99); Lipase 38 U/L (13-75); Potassium 4.3 mmol/L (3.3-5.1); Protein, Total 6.6 g/dL (5.9-8.4); Sodium Level 137 mmol/L (133-145); Total Bilirubin 0.73 mg/dL (0.00-1.30); Troponin T High Sensitivity 19 ng/L (<=22)
[2025-02-11 14:33] VITALS: BP 117/59; PULSE 53; RESP 18; TEMP 37.1; O2SAT 99
== END 2025-02-11 14:37 | disposition home or self-care (01) ==
PROVIDERS: Physician Assistant; Emergency Provider Emergency Medicine; PCP Internal Medicine; Visit Provider Emergency Medicine
DX: R07.9 Chest pain, unspecified (principal); I25.10 Atherosclerotic heart disease of native coronary artery without angina pectoris; E78.00 Pure hypercholesterolemia, unspecified; Z95.5 Presence of coronary angioplasty implant and graft; I10 Essential (primary) hypertension; Z79.82 Long term (current) use of aspirin; Z79.899 Other long term (current) drug therapy; N40.0 Benign prostatic hyperplasia without lower urinary tract symptoms; Z90.49 Acquired absence of other specified parts of digestive tract
CPT/HCPCS: 71046; 80048; 80076; 81001; 83690; 84484; 85025; 93005; 99284; A4216

== ENCOUNTER → 2025-09-17 | Outpatient (CLI) | payer MEDICARE, SELFPAY ==
[2025-09-17 13:15] LABS: Anion Gap 8 (5-15); BUN 15 mg/dL (4-19); BUN/Creat Ratio 14.1 RATIO (10-20); Calcium,Total 8.6 mg/dL (7.6-11.0); Carbon Dioxide 29.1 mmol/L (21.0-32.0); Chloride 102 mmol/L (98-108); Glucose 105 mg/dL (70-99); Potassium 4.3 mmol/L (3.3-5.1); Vitamin B12 1190 pg/mL (180-914)
[2025-09-17 13:17] LABS: FOLATES,SERUM (FOLIC ACID) 16.20 ng/mL (4.60-34.80)
[2025-09-23 08:08] LABS: HOMOCYSTEINE 13.3 umol/L (0.0-21.3); Methylmalonic Acid Bld 99 nmol/L (0-378)
== END | disposition home or self-care (01) ==
LOC: CIMLAB 10:53
PROVIDERS: PCP Internal Medicine; Referring Provider Internal Medicine; Visit Provider Internal Medicine
DX: R79.89 Other specified abnormal findings of blood chemistry (principal); I10 Essential (primary) hypertension
CPT/HCPCS: 36415; 80048; 82607; 82746; 83090; 83921